=== PATIENT | male | born 1975 ===

== ENCOUNTER 2018-04-28 18:49 | Inpatient (IN) | payer MEDICAID, SELFPAY ==
[2018-04-28 18:49] VITALS: BMI 45.9
[2018-04-28 19:55] LABS: BASO # 0.1 K/uL (0.0-0.2); EOS # 0.4 K/uL (0.0-0.7); EOS % 6.1 % (0.0-4.0); HEMOGLOBIN 15.6 g/dL (12.0-18.0); LYMPH # 1.6 K/uL (1.0-4.3); LYMPH % 23.7 % (20.0-40.0); MEAN CELL VOLUME 95.8 fL (80.0-94.0); MEAN CORPUSCULAR HEMOGLOBIN 32.8 pg (27.0-31.0); MEAN CORPUSCULAR HGB CONC 34.2 g/dL (33.0-37.0); MEAN PLATELET VOLUME 9.2 fL (7.2-11.7); MONO # 0.5 K/uL (0.0-0.8); MONO % 7.7 % (0.0-10.0); NEUT # 4.2 K/uL (1.8-7.0); NEUT % 61.5 % (50.0-75.0); NRBC % 0.1 % (0.0-2.0); RBC 4.76 Mil/uL (4.40-5.90); RED CELL DISTRIBUTION WIDTH 13.2 % (11.5-14.5); WHITE BLOOD COUNT 6.8 K/uL (4.8-10.8)
[2018-04-28 20:03] LABS: INR 1.4; PROTHROMBIN TIME 15.6 SECONDS (9.7-12.2)
[2018-04-28 20:11] LABS: ALB/GLOB RATIO 1.3 (1.0-2.1); ALBUMIN 4.2 g/dL (3.5-5.0); ALT/SGPT 72 U/L (21-72); AST/SGOT 39 U/L (17-59); BLOOD UREA NITROGEN 19 mg/dL (9-20); CALCIUM 9.2 mg/dl (8.6-10.4); GFR NON-AFRICAN AMERICAN > 60
[2018-04-28] MEDS ORDERED: DiphenhydrAMINE 50 mg/ml Inj ONE (20:59)
--- NOTE | 2018-04-28 22:09 | C.PDOC ---
History Of Present Illness 42 yo male with no PMH came to the ER for for right sided anterior neck pain and swelling since 11 am. Pt states that he woke up asymptomatic, then started feeling swelling and pain to the right sided of his neck radiating to his ear /head. In the afternoon, the left side started hurting prompting ED visit. Notes pain with he rotates his head. Also states he is unable to lay down, causes pain to his neck and chest. Notes when he swallows it feels tight, "I feel it going down." Denies SOB, chest pain , trauma, fever, difficulty breathing or swallowing. Of note, pt had ventral hernia repair two days ago. <Merle Gonzalez - Last Filed: 04/29/18 01:09> <Celena Peterson - Last Filed: 04/28/18 22:14> History Per: Patient History/Exam Limitations: no limitations Onset/Duration Of Symptoms: Hrs Current Symptoms Are (Timing): Still Present Previous Symptoms: Neck Pain Associated Symptoms: denies: Incontinence, New Weakness, New Numbness Exacerbating Factor(s): Movement <Merle Gonzalez - Last Filed: 04/29/18 01:09> Time Seen by Provider: 04/28/18 19:12 Chief Complaint (Nursing): Back Pain Past Medical History Vital Signs: Last Vital Signs Temp 98.4 F 04/28/18 18:52 Pulse 63 04/28/18 21:09 Resp 12 04/28/18 21:09 BP 105/76 04/28/18 21:09 Pulse Ox 98 04/28/18 22:09 - [facility] Procedures ELBOW ARTHROPLASTY NEC (06/19/13) OTHER THERAPEUTIC APHERESIS (06/19/13) <Celena Peterson - Last Filed: 04/28/18 22:14> Vital Signs: Last Vital Signs Temp 98.4 F 04/28/18 18:52 Pulse 63 04/28/18 21:09 Resp 12 04/28/18 21:09 BP 105/76 04/28/18 21:09 Pulse Ox 98 04/28/18 21:09 - Medical History PMH: Gall Bladder Disease, Sleep Apnea (USES CPAP (?SETTING)) Denies: Chronic Kidney Disease Surgical History: Cholecystectomy - [facility] Procedures ELBOW ARTHROPLASTY NEC (06/19/13) OTHER THERAPEUTIC APHERESIS (06/19/13) Family History: States: Unknown Family Hx - Social History Hx Tobacco Use: No Hx Alcohol Use: No Hx Substance Use: No - Immunization History Hx Tetanus Toxoid Vaccination: No Hx Influenza Vaccination: No Hx Pneumococcal Vaccination: No <Merle Gonzalez - Last Filed: 04/29/18 01:09> Review Of Systems Except As Marked, All Systems Reviewed And Found Negative. Musculoskeletal: Positive for: Neck Pain <Merle Gonzalez - Last Filed: 04/29/18 01:09> Physical Exam - Physical Exam Appears: Well, Non-toxic, Other (uncomfortable) Skin: Normal Color, Warm, Dry Head: Atraumatic, Normacephalic Eye(s): bilateral: Normal Inspection, PERRL, EOMI Nose: Normal Oral Mucosa: Moist Throat: Normal Neck: No Normal ROM (decreased rom secondary to pain), Trachea Midline, No Step Off Deformity, Other ((+) tenderness and swelling to the anterior neck R> L) Chest: Symmetrical Cardiovascular: Rhythm Regular Respiratory: Normal Breath Sounds Gastrointestinal/Abdominal: Normal Exam, Soft, No Tenderness, Other ((+) healing incision, nontender, no erythema, no discharge) Back: Normal Inspection Extremity: Normal ROM Neurological/Psych: Oriented x3, Normal Speech, Normal Cognition <Merle Gonzalez - Last Filed: 04/29/18 01:09> ED Course And Treatment - Laboratory Results Result Diagrams: 04/28/18 19:52 04/28/18 19:52 <Celena Peetrson - Last Filed: 04/28/18 22:14> - Laboratory Results Result Diagrams: 04/28/18 19:52 04/28/18 19:52 O2 Sat by Pulse Oximetry: 98 - CT Scan/US CTA Chest Other Rad Studies (CT/US): Read By Radiologist, Radiology Report Reviewed CT/US Interpretation: History: Right side chest pain. Comparison: None. Technique: CT examination of the chest with intravenous contrast. CT examination of the chest was obtained following intravenous administration of 100 cc low osmolar contrast. Images were reconstructed in the coronal and sagittal planes. There is mild pleural-parenchymal density at both lung bases as well as small bilateral pleural effusions worse on the right side. Heart appears within normal limits in size. Small pericardial effusion may be present. There is no distinct hilar mediastinal mass, however, there is extensive infiltration of the fat at the mediastinal region as well as paratracheal region and the exact etiology is not certain. Considerations would include edema, inflammatory process or infiltrative disorder including neoplasm. The vascular structures appear intact. Note is made of a mild compression deformity of an upper lumbar vertebral body. Views of the upper abdomen show no obvious mass or lymphadenopathy. Gallbladder has been surgically removed. Impression: Mild pleural-parenchymal density both lung bases as well as small pleural effusions worse on the right side. No distinct mass at the hilar mediastinal regions although there is extensive infiltration of the fat at the mediastinal and paratracheal regions raising suspicion of inflammatory change or neoplasm. Small pericardial effusion suggested. Close clinical correlation is advised. CT Neck Soft Tissue Other Rad Studies (CT/US): Read By Radiologist, Radiology Report Reviewed CT/US Interpretation: History: Right-sided neck pain and swelling. Comparison: None. Technique: CT examination of the neck with intravenous contrast. CT examination of the neck was obtained following the intravenous administration of 100 cc low osmolar contrast. The trachea appears in the midline. The larynx and its contents appear within normal limits. The parotid and submandibular glands and thyroid gland appears symmetric. There is no distinct mass identified. There is extensive heterogeneous infiltration of the fat within the lower portion of the neck as well as the supraclavicular regions and the exact etiology of this finding is not certain. The osseous structures appear intact. Impression: Extensive infiltration of the fat at the supraclavicular regions and lower portion of the neck which raises suspicion of an inflammatory or neoplastic process. Close clinical correlation is advised. Following clinical evaluation correlation with nuclear medicine PET scan may be considered. Progress Note: Case discussed and pt evaluated by Dr Peterson upon initial evaluation. Agree dupon plan and treatment. In CT, pt developed rash to his face. Benadryl and Solumedrol given. No SOB, lip or tongue swelling. On re- evlauation, rash improved. No intraoral swelling. No SOB or stridor. Dr Peterson discussed case with Dr Gordon, agreed upon admission. <Merle Gonzalez - Last Filed: 04/29/18 01:09> Disposition Discussed With DrEldon: Yayo Evans Comment: acepted the pt on his service and took over the care at 10:14 PM Doctor Will See Patient In The: ED Counseled Patient/Family Regarding: Studies Performed, Diagnosis - Disposition Disposition Time: 22:14 - POA Present On Arrival: None <Celena Peterson - Last Filed: 04/28/18 22:14> <Merle Gonzalez - Last Filed: 04/29/18 01:09> - Disposition Disposition: HOSPITALIZED Condition: FAIR - Clinical Impression Clinical Impression: Neck pain on right side, Dysphagia, Dyspnea Decision To Admit - Pt Status Changed To: Hospital Disposition Of: Inpatient - Admit Certification Admit to Inpatient:: After my assessment, the patient will require hospita lization for at least two midnights. This is because of the severity of symptoms shown, intensity of services needed, and/or the medical risk in this patient being treated as an outpatient. - InPatient: Physician Admission Certification:: After my assessment, the patient will require hospitalization for at least two midnights. This is because of the severity of symptoms shown, intensity of services needed, and/or the medical risk in this patient being treated as an outpatient. - . Bed Request Type: Regular Admitting Physician: Yayo Evans <Celena Peterson - Last Filed: 04/28/18 22:14> <Merle Gonzalez - Last Filed: 04/29/18 01:09> - . Patient Diagnosis: Neck pain on right side, Dysphagia, Dyspnea
--- NOTE | 2018-04-28 22:09 | C.PDOC ---
Time Seen by Provider: 04/28/18 19:12 Chief Complaint (Nursing): Back Pain Past Medical History Vital Signs: Last Vital Signs Temp 98.4 F 04/28/18 18:52 Pulse 63 04/28/18 21:09 Resp 12 04/28/18 21:09 BP 105/76 04/28/18 21:09 Pulse Ox 98 04/28/18 21:09 - Medical History PMH: Gall Bladder Disease, Sleep Apnea (USES CPAP (?SETTING)) Denies: Chronic Kidney Disease Surgical History: Cholecystectomy - [facility] Procedures ELBOW ARTHROPLASTY NEC (06/19/13) OTHER THERAPEUTIC APHERESIS (06/19/13) - Social History Hx Tobacco Use: No Hx Alcohol Use: No Hx Substance Use: No - Immunization History Hx Tetanus Toxoid Vaccination: No Hx Influenza Vaccination: No Hx Pneumococcal Vaccination: No ED Course And Treatment - Laboratory Results Result Diagrams: 04/28/18 19:52 04/28/18 19:52 O2 Sat by Pulse Oximetry: 98 Disposition - Disposition
--- NOTE | 2018-04-28 22:47 | PCM.RRT ---
MACHINE INKER Nurses Assessment - Situation Date: 04/28/18 Time MACHINE INKER was called: 20:50 MACHINE INKER Location:: CT MACHINE INKER Reason for Call: Looks Sicker (Pt developed facial swelling and hives) - IV IV Inserted during MACHINE INKER?: No - Medication Medications Administered During MACHINE INKER: solu-cortef 100mg IV. benadryl 50mg IV CPR started during MACHINE INKER?: No - Jonathon Coma Scale Coma Scale Eye Opening: Spontaneous Coma Scale Motor: Obeys Commands Movement Coma Scale Verbal: Oriented Coma Scale Total: 15 - Recommendations Notifications: Attending Physician I.Reason for MACHINE INKER - A) Acute Change in Patient: Subjective: MACHINE INKER was called to CT at 20:50 s/p iv contrast administration for CT. Pt developed pruritic facial hives and swelling; limited only to chin and up. Pt reported he had never had a reaction like this before, either to contrast or to any meds or foods. Nursing reports he was also given Toradol in the ED. Pt was given solu-cortef 100mg and Benadryl 50mg, with rapid improvement of symptoms. Pt reported no swelling of tongue or difficulty breathing during course, no oral tingling. - Neurological Status (Select all that apply): Alert, Responsive, Oriented, Verbal, Follows Commands - Respiratory Oxygen Delivery Method: Room Air - Constitutional Appears: Non-toxic - Head Head Exam: ATRAUMATIC, NORMOCEPHALIC. absent: NORMAL INSPECTION (diffuse hives and swelling from chin up) - Eyes Eye Exam: EOMI - Respiratory Exam Respiratory Exam: Clear to Ausculation Bilateral, NORMAL BREATHING PATTERN. absent: Wheezes - Cardiovascular Exam Cardiovascular Exam: REGULAR RHYTHM. absent: Tachycardia, Murmur - GI/Abdominal Exam GI & Abdominal Exam: Soft, Normal Bowel Sounds. absent: Distended - Neurological Exam Neurological Exam: Alert, Awake, Oriented x3 - Extremities Exam Extremities Exam: Normal Inspection. absent: Calf Tenderness, Pedal Edema Plan - Assessment of Findings&Treatment Plan Acute allergic reaction -given solu-cortef 100mg and benadryl 50mg -good response following administraton of medication -vitals WNL BP 115/85, HR 965, O2 100% on room air -advised pt of possible adverse reactions to either iv contrast or torodal -stable
--- NOTE | 2018-04-28 23:00 | CP.PCM.HP ---
<Margaret Machado - Last Filed: 04/29/18 06:05> History of Present Illness - History of Present Illness History of Present Illness: Patient is a 42 year old male w/ no PMHx who presented to the ED w/ complaints of right sided neck, shoulder, and post auricular pain, left sided chest pressure, and dysphagia since 11am. Pt reports the neck pain is worse with movement and painful to touch, right arm weakness and tingling. Pt reports dysphagia to liquids. Pt reports left chest pressure, worse when laying flat. Pt reports all symptoms are of new onset. Upon questioning, pt admits to right sided throbbing cervical/post auricular new onset headache. Pt denies chest pain, SOB, abdominal pain, nausea, vomiting or diarrhea. Of note; MANAGER [employer]IA called to CT earlier in evening as pt had new onset facial allergic reaction, non anaphylactic to presumed iv contrast or toradol given by ED. Full resolution w/ Benadryl 50mg and solu-cortef 100mg PMD: Dr. Graham PMHx: denies PSHx: lap umbilical hernia repair 04/17, emil-12 yrs ago Allergies: possible iodine, toradol Meds:pain meds s/p sx FamHx: denies SocHx:Denies alcohol/tobacco/drugs. Lives w/ and children. Works construction Present on Admission - Present on Admission Any Indicators Present on Admission: No Review of Systems - EENT Eyes: absent: Change in Vision Nose/Mouth/Throat: Dysphagia (to liquids), Neck Pain (right sided). absent: Throat Swelling, Tongue Swelling - Cardiovascular Cardiovascular: Chest Pain (pressure ). absent: Edema - Respiratory Respiratory: Pain on Inspiration. absent: Cough, Dyspnea - Gastrointestinal Gastrointestinal: absent: Abdominal Pain, Diarrhea, Nausea - Genitourinary Genitourinary: absent: Dysuria - Musculoskeletal Musculoskeletal: Muscle Weakness (right arm), Neck Pain (right), Numbness, Tingling (right arm) - Neurological Neurological: absent: Dizziness Past Patient History - Past Medical History & Family History Past Medical History?: Yes - Past Social History Smoking Status: Never Smoked - CARDIAC Hx Cardiac Disorders: No - PULMONARY Hx Sleep Apnea: Yes (USES CPAP (?SETTING)) - NEUROLOGICAL Hx Neurological Disorder: No - HEENT Hx HEENT Problems: No - RENAL Hx Chronic Kidney Disease: No - ENDOCRINE/METABOLIC Hx Endocrine Disorders: No - HEMATOLOGICAL/ONCOLOGICAL Hx Blood Disorders: No - INTEGUMENTARY Hx Dermatological Problems: No - MUSCULOSKELETAL/RHEUMATOLOGICAL Hx Falls: No - GASTROINTESTINAL Hx Gall Bladder Disease: Yes - GENITOURINARY/GYNECOLOGICAL Hx Genitourinary Disorders: No - PSYCHIATRIC Hx Substance Use: No - SURGICAL HISTORY Hx Cholecystectomy: Yes - ANESTHESIA Hx Anesthesia: Yes Hx Anesthesia Reactions: No Hx Malignant Hyperthermia: No Meds Allergies/Adverse Reactions: Allergies Allergy/AdvReac Type Severity Reaction Status Date / Time iodine Allergy RASH Verified 04/28/18 22:55 Physical Exam - Constitutional Appears: No Acute Distress - Head Exam Head Exam: ATRAUMATIC, NORMAL INSPECTION, NORMOCEPHALIC - Eye Exam Eye Exam: EOMI, Normal appearance - ENT Exam ENT Exam: Mucous Membranes Moist, Normal Exam - Neck Exam Neck exam: Positive for: Normal Inspection, Tenderness (right sided neck ttp) - Respiratory Exam Respiratory Exam: Clear to Auscultation Bilateral, NORMAL BREATHING PATTERN. absent: Rales, Wheezes - Cardiovascular Exam Cardiovascular Exam: REGULAR RHYTHM, +S1, +S2, Systolic Murmur. absent: Tachycardia - GI/Abdominal Exam GI & Abdominal Exam: Normal Bowel Sounds, Soft. absent: Tenderness - Extremities Exam Extremities exam: Positive for: normal inspection. Negative for: calf tenderness, pedal edema - Neurological Exam Neurological exam: Alert, Motor Sensory Deficit, Oriented x3 - Psychiatric Exam Psychiatric exam: Normal Affect, Normal Mood - Skin Skin Exam: Dry, Intact, Normal Color, Warm Results - Vital Signs Recent Vital Signs: Last Vital Signs Temp 98.6 F 04/28/18 22:33 Pulse 66 04/28/18 22:33 Resp 16 04/28/18 22:39 BP 115/76 04/28/18 22:33 Pulse Ox 96 04/28/18 22:39 - Labs Result Diagrams: 04/28/18 19:52 04/28/18 19:52 Labs: Laboratory Results - last 24 hr 04/28/18 04/28/18 04/28/18 19:52 19:52 19:52 WBC 6.8 RBC 4.76 Hgb 15.6 Hct 45.6 MCV 95.8 H MCH 32.8 H MCHC 34.2 RDW 13.2 Plt Count 233 MPV 9.2 Neut % (Auto) 61.5 Lymph % (Auto) 23.7 [place] % (Auto) 7.7 Eos % (Auto) 6.1 H Baso % (Auto) 1.0 Neut # (Auto) 4.2 Lymph # (Auto) 1.6 [place] # (Auto) 0.5 Eos # (Auto) 0.4 Baso # (Auto) 0.1 PT 15.6 H INR 1.4 APTT 32 Sodium 140 Potassium 4.3 Chloride 101 Carbon Dioxide 27 Anion Gap 17 BUN 19 Creatinine 0.8 Est GFR ( Amer) > 60 Est GFR (Non-Af Amer) > 60 Random Glucose 109 Calcium 9.2 Total Bilirubin 0.5 AST 39 ALT 72 D Alkaline Phosphatase 85 Total Protein 7.5 Albumin 4.2 Globulin 3.3 Albumin/Globulin Ratio 1.3 Assessment & Plan - Assessment and Plan (Free Text) Assessment: 42 yo m admitted w/ neck/chest pain; CT findings concerning for neoplasm Neck/Chest pain -CT concerning for neoplastic lesions -Order MRI to further evaluate -Motrin 400mg q6 prn pain Chest Pressure -f/u CLAY, trop x1 negative -EKG unchanged from 04/05/18, abnormal Dysphagia -NPO except meds -swallow eval/treat -speech eval Ppx -NPO -D5.5NS @100/hr <Yayo Evans - Last Filed: 04/29/18 06:10> Results - Vital Signs Recent Vital Signs: Last Vital Signs Temp 98.1 F 04/29/18 00:00 Pulse 61 04/29/18 00:00 Resp 20 04/29/18 00:00 BP 119/75 04/29/18 00:00 Pulse Ox 98 04/29/18 03:14 - Labs Result Diagrams: 04/28/18 19:52 04/28/18 19:52 Labs: Laboratory Results - last 24 hr 04/28/18 04/28/18 04/28/18 19:52 19:52 19:52 WBC 6.8 RBC 4.76 Hgb 15.6 Hct 45.6 MCV 95.8 H MCH 32.8 H MCHC 34.2 RDW 13.2 Plt Count 233 MPV 9.2 Neut % (Auto) 61.5 Lymph % (Auto) 23.7 [place] % (Auto) 7.7 Eos % (Auto) 6.1 H Baso % (Auto) 1.0 Neut # (Auto) 4.2 Lymph # (Auto) 1.6 [place] # (Auto) 0.5 Eos # (Auto) 0.4 Baso # (Auto) 0.1 PT 15.6 H INR 1.4 APTT 32 Sodium 140 Potassium 4.3 Chloride 101 Carbon Dioxide 27 Anion Gap 17 BUN 19 Creatinine 0.8 Est GFR ( Amer) > 60 Est GFR (Non-Af Amer) > 60 Random Glucose 109 Calcium 9.2 Total Bilirubin 0.5 AST 39 ALT 72 D Alkaline Phosphatase 85 Total Creatine Kinase Troponin I Total Protein 7.5 Albumin 4.2 Globulin 3.3 Albumin/Globulin Ratio 1.3 04/29/18 05:38 WBC RBC Hgb Hct MCV MCH MCHC RDW Plt Count MPV Neut % (Auto) Lymph % (Auto) [place] % (Auto) Eos % (Auto) Baso % (Auto) Neut # (Auto) Lymph # (Auto) [place] # (Auto) Eos # (Auto) Baso # (Auto) PT INR APTT Sodium Potassium Chloride Carbon Dioxide Anion Gap BUN Creatinine Est GFR ( Amer) Est GFR (Non-Af Amer) Random Glucose Calcium Total Bilirubin AST ALT Alkaline Phosphatase Total Creatine Kinase 23 L Troponin I < 0.0120 Total Protein Albumin Globulin Albumin/Globulin Ratio Assessment & Plan - Date & Time Date: 04/29/18 (I have seen and examined the patient. I agree with the findings and plan of care as documented by Dr. Serrano. Patient with neck and chest pain. Dysphagia. CT done in ED showing possible neoplastic lesion. MRI to be done. IVF. Monitor for acute changes.) Time: 06:09 Attending/Attestation - Attestation I have personally seen and examined this patient.: Yes I have fully participated in the care of the patient.: Yes I have reviewed all pertinent clinical information: Yes
[2018-04-28] MEDS ORDERED: Iodixanol 320 MG/ML 100 ML BOTTLE IV ONE (23:04)
[2018-04-29 01:06] VITALS: RESP 20
[2018-04-29] MEDS: Dextrose 5%/0.9% NS 1,000 ML IV SCH ×2 (05:17→14:03)
[2018-04-29 06:10] LABS: CK-MB 0.27 ng/mL (0.0-3.38)
--- NOTE | 2018-04-29 10:43 | CT ---
Date of service: 04/28/2018 PROCEDURE: CT Chest with contrast HISTORY: pain, swelling COMPARISON: None available. TECHNIQUE: Contiguous axial images were obtained through the chest with intravenous contrast enhancement. Sagittal and coronal reconstructions were performed. IV contrast: Radiation dose (DLP): 913.14 mGy-cm. This CT exam was performed using one or more of the following dose reduction techniques: Automated exposure control, adjustment of the mA and/or kV according to patient size, and/or use of iterative reconstruction technique. FINDINGS: LUNGS: Tiny bilateral effusions with mild bibasilar atelectasis. Minor linear scarring changes seen in the left lingular region. No parenchymal masses MEDIASTINUM: There are extensive infiltration changes seen within the mediastinal fat extending superiorly into the supraclavicular subcutaneous tissues and subcutaneous tissues of the lower neck bilaterally. There is also infiltration changes within the anterior subcutaneous tissues of the mid upper chest mid and bilateral parasagittal upper chest. Findings are of uncertain etiology though suggest a diffuse inflammatory process ( cellulitis - mediastinitis). Edema or other of the infiltrative process such as atypical neoplastic process).. No distinct mediastinal or hilar mass no significant mediastinal or hilar adenopathy. Heart size is mildly enlarged. Small pericardial effusion. Small hiatal hernia. Central airways midline and patent. No central endoluminal lesions. PLEURA: As above. No pneumothorax. BONES: Mild multilevel degenerative spondylosis of the thoracic spine. There are no acute compression fractures nor the retropulsed fragments however chronic appearing wedge deformity of the L1 segment is present UPPER ABDOMEN: Cholecystectomy. OTHER FINDINGS: None. IMPRESSION: Extensive infiltration changes seen within the mediastinal fat extending superiorly into the supraclavicular subcutaneous tissues and subcutaneous tissues of the lower neck bilaterally. There is also infiltration changes within the anterior subcutaneous tissues of the mid upper chest mid and bilateral parasagittal upper chest. Findings are of uncertain etiology though suggest a diffuse inflammatory process ( cellulitis - mediastinitis). Edema or other of the infiltrative process such as atypical neoplastic process) not excluded distinct mediastinal or hilar mass no significant mediastinal or hilar adenopathy. Tiny bilateral effusions and atelectasis both posterior sulci. There also some curvilinear atelectatic and or scarring changes in the lingular region. Cardiomegaly with small pericardial effusion
--- NOTE | 2018-04-29 10:57 | CT ---
Date of service: 04/28/2018. PROCEDURE: CT NECK WITH CONTRAST. HISTORY: Pain swelling COMPARISON: Correlation made with concurrent CT scan chest TECHNIQUE: Contiguous helical/transaxial sections of the neck with intravenous contrast. Coronal and sagittal reformats generated. Intravenous contrast dose: 100 cc Visipaque [id number] Radiation dose: DLP 573.61 mGy-cm This CT exam was performed using one or more of the following dose reduction techniques: Automated exposure control, adjustment of the mA and/or kV according to patient size, and/or use of iterative reconstruction technique.. FINDINGS: Extensive infiltration changes seen within the mediastinal fat extending superiorly into the supraclavicular subcutaneous tissues and subcutaneous tissues of the lower neck bilaterally. There is also infiltration changes within the anterior subcutaneous tissues of the mid upper chest mid and bilateral parasagittal upper chest more so on the right side.. Findings are of uncertain etiology though suggest a diffuse inflammatory process ( cellulitis - mediastinitis). Edema or other of the infiltrative process such as atypical neoplastic process).. No distinct upper mediastinal mass. No obvious distinct mass seen in the soft tissues of the neck. Multiple small nonspecific bilateral cervical lymph nodes are present. Thyroid gland is diminutive and poorly delineated due to crossing streak and beam hardening artifact arising from dense clavicles and shoulder girdles as well as large body habitus. Submandibular and parotid glands grossly unremarkable. Carotid and vertebral arteries are patent throughout. Mild palatine tonsillar enlargement with encroachment of the tonsils medially reducing the paige pharyngeal airway. At least 1 tiny sialolith is seen in the left palatine tonsil. Minor asymmetry of the vallecular likely due to some encroachment by lingual tonsils of. Residual and/or retained secretion may contribute. There is also asymmetry of the pyriform sinuses left-sided which is smaller than the right however no definitive masses identified The airway is diminished at the level of the true vocal cords possibly due to Valsalva or phonation during image acquisition.. There straightening of the normal cervical lordosis likely due to patient positioning in the gantry. IMPRESSION: Extensive infiltration changes seen within the mediastinal fat extending superiorly into the supraclavicular subcutaneous tissues and subcutaneous tissues of the lower neck bilaterally. There is also infiltration changes within the anterior subcutaneous tissues of the mid upper chest mid and bilateral parasagittal upper chest more so on the right side.. Findings are of uncertain etiology though suggest a diffuse inflammatory process ( cellulitis - mediastinitis). Edema or other of the infiltrative process such as atypical neoplastic process).. No distinct upper mediastinal mass. No obvious distinct mass seen in the soft tissues of the neck. Multiple small nonspecific bilateral cervical lymph nodes are present.
--- NOTE | 2018-04-29 12:51 | CT ---
Date of service: 04/29/2018 PROCEDURE: CT HEAD WITHOUT CONTRAST. HISTORY: headache, R-sided neck pain COMPARISON: None available. TECHNIQUE: Axial computed tomography images were obtained through the head/brain without intravenous contrast. Radiation dose: Total exam DLP = 1096.89 mGy-cm. This CT exam was performed using one or more of the following dose reduction techniques: Automated exposure control, adjustment of the mA and/or kV according to patient size, and/or use of iterative reconstruction technique. FINDINGS: HEMORRHAGE: No intracranial hemorrhage. BRAIN: No mass effect or edema. No atrophy or chronic microvascular ischemic changes. VENTRICLES: Unremarkable. No hydrocephalus. CALVARIUM: Unremarkable. PARANASAL SINUSES: Unremarkable as visualized. No significant inflammatory changes. MASTOID AIR CELLS: Unremarkable as visualized. No inflammatory changes. OTHER FINDINGS: None. IMPRESSION: No acute intracranial hemorrhage.
--- NOTE | 2018-04-29 20:10 | CP.PCM.PN ---
Subjective - Date & Time of Evaluation Date of Evaluation: 04/29/18 Time of Evaluation: 09:15 - Subjective Subjective: Medicine Progress Note for Hospitalist Service Pt seen and examined at bedside this am. States he is still having neck pain 03/09, not improving with medication given in ED. Reports hives on face have resolved s/p [employer]. Reports pain with inspiration 2/2 to the R-sided neck pain he is having. denies vision changes, chest pain, n/v/d/c, abd pain, urinary complaints, or other symptoms. Objective - Vital Signs/Intake and Output Vital Signs (last 24 hours): Temp Pulse Resp BP Pulse Ox 98.4 F 57 L 20 109/73 98 04/29/18 15:05 04/29/18 15:05 04/29/18 15:05 04/29/18 15:05 04/29/18 15:05 Intake and Output: 04/29/18 04/30/18 18:59 06:59 Intake Total 800 Balance 800 - Medications Medications: Current Medications Heparin Sodium (Porcine) (Heparin) 5,000 units SC Q8 [facility] Last Admin: 04/29/18 13:21 Dose: 5,000 units Dextrose/Sodium Chloride (Dextrose 5%/0.9% Ns 1000 Ml) 1,000 mls @ 100 mls/hr IV .Q10H [facility] Last Admin: 04/29/18 14:03 Dose: Not Given Influenza Virus Vaccine (Fluzone Quad [id number]) 60 mcg IM .ONCE ONE Stop: 05/01/18 10:16 Morphine Sulfate (Morphine) 1 mg IVP Q6H PRN PRN Reason: Pain, moderate (4-7) Last Admin: 04/29/18 10:04 Dose: 1 mg Pneumococcal Polyvalent Vaccine (Pneumovax 23 Vaccine) 0.5 ml IM .ONCE ONE Stop: 05/01/18 10:01 - Labs Labs: 04/28/18 19:52 04/28/18 19:52 PT 15.6 SECONDS (9.7-12.2) H 04/28/18 19:52 INR 1.4 04/28/18 19:52 APTT 32 SECONDS (21-34) 04/28/18 19:52 - Constitutional Appears: Non-toxic, No Acute Distress - Head Exam Head Exam: ATRAUMATIC, NORMOCEPHALIC - Eye Exam Eye Exam: EOMI, Normal appearance, PERRL - ENT Exam ENT Exam: Mucous Membranes Moist - Neck Exam Additional comments: Tenderness to palpation of R trapezius and lateral neck up to post-auricular area and R occipital area w/ radiation down to R mid-sternal area, warm and boggy soft tissue - Respiratory Exam Respiratory Exam: Clear to Ausculation Bilateral, NORMAL BREATHING PATTERN. absent: Rales, Rhonchi, Wheezes - Cardiovascular Exam Cardiovascular Exam: REGULAR RHYTHM, +S1, +S2. absent: Gallop, Rubs, Murmur - GI/Abdominal Exam GI & Abdominal Exam: Soft, Normal Bowel Sounds. absent: Distended, Firm, Guarding, Rigid, Tenderness - Neurological Exam Neurological Exam: Alert, Awake, CN II-XII Intact, Normal Gait, Oriented x3 - Psychiatric Exam Psychiatric exam: Normal Affect, Normal Mood - Skin Skin Exam: Dry, Intact, Warm Assessment and Plan - Assessment and Plan (Free Text) Assessment: 42M PMHx impaired glucose tolerance, obesity, who presented with c/o R sided headache, post-auricular, and neck pain, L sided chest pressure, and dysphagia. Found to have soft tissue swelling in neck and possible mediastinitis on CT scans. R/o inflammatory vs. neoplastic etiology. Plan: Neck/Chest pain, r/o inflammatory vs. neoplastic etiology -Neck and Chest CT demonstrated extensive infiltration changes seen within the mediastinal fat extending superiorly into supraclavicular subcutaneous tissues and subcutaneous tissues of the lower neck b/l; infiltration changes within anterior subcutaneous tissues of mid upper chest and b/l parasagittal upper chest more so on the R side; findings uncertain etiology, cannot exclude cellulitis, mediastinitis, atypical neoplastic process -CT head: neg for acute changes -ESR and CRP elevated -Heme/onc (Dr. Garcia) consulted, recs appreciated -Pulm (Dr. White consulted, recs appreciated -Pending echo -F/u lab work-up for inflammatory markers -Trop x1 neg -EKG unchanged from 04/05/18 per chart review -Morphine 1 mg q 6 h prn pain (Unsure if pt has reaction to toradol vs. IV contrast after [employer] yesterday for allergic reaction/hives on face) Dysphagia -NPO except meds -swallow eval/treat -speech eval PPX -NPO, pending speech and swallow eval -D5 1/2 NS @100 cc/hr -DVT ppx: Heparin 5000U q 8h Pt seen, examined with, and plan discussed with Dr. Chowdhury, attending. Calvin Gomes DO PGY-1, [employer] House [employer] Pager #[phone]
[2018-04-30] MEDS: Dextrose 5%/0.9% NS 1,000 ML IV SCH ×3 (01:50→21:26)
[2018-04-30 07:23] LABS: BASO # 0.1 K/uL (0.0-0.2); BASO % 0.9 % (0.0-2.0); EOS # 0.4 K/uL (0.0-0.7); EOS % 7.1 % (0.0-4.0); HEMOGLOBIN 14.1 g/dL (12.0-18.0); LYMPH # 1.3 K/uL (1.0-4.3); MEAN CELL VOLUME 96.2 fL (80.0-94.0); MEAN CORPUSCULAR HEMOGLOBIN 32.7 pg (27.0-31.0); MEAN PLATELET VOLUME 9.8 fL (7.2-11.7); MONO # 0.5 K/uL (0.0-0.8); MONO % 8.2 % (0.0-10.0); NEUT % 63.8 % (50.0-75.0); NRBC % 0.1 % (0.0-2.0); RBC 4.3 Mil/uL (4.40-5.90); RED CELL DISTRIBUTION WIDTH 13.1 % (11.5-14.5); WHITE BLOOD COUNT 6.3 K/uL (4.8-10.8)
[2018-04-30 07:36] LABS: ALB/GLOB RATIO 1.1 (1.0-2.1); ALBUMIN 3.3 g/dL (3.5-5.0); ALT/SGPT 87 U/L (21-72); AST/SGOT 45 U/L (17-59); BLOOD UREA NITROGEN 19 mg/dL (9-20); CALCIUM 8.3 mg/dl (8.6-10.4); GFR NON-AFRICAN AMERICAN > 60
--- NOTE | 2018-04-30 13:55 | CP.PCM.PN ---
Subjective - Date & Time of Evaluation Date of Evaluation: 04/30/18 Time of Evaluation: 08:30 - Subjective Subjective: PGY-[address] Chowdhury service Patient is seen and examined at bedside. Patient reports improvement in pain felt in the back of his right ear and neck. Patient says his chest feels like as if it is swelling up at times, with pain and pressure. Patient reports swelling in his neck bilaterally. Pain and pressure gets worse when coughing or when having hiccups. Patient denies fever, chills, headache, dizziness, chest pain, shortness of breath, nausea, vomiting, diarrhea, constipation or rash. Objective - Vital Signs/Intake and Output Vital Signs (last 24 hours): Temp Pulse Resp BP Pulse Ox 98.5 F 60 20 118/72 97 04/30/18 07:28 04/30/18 07:28 04/30/18 07:28 04/30/18 07:28 04/30/18 07:28 Intake and Output: 04/30/18 04/30/18 06:59 18:59 Intake Total 1600 Balance 1600 - Medications Medications: Current Medications Heparin Sodium (Porcine) (Heparin) 5,000 units SC Q8 [facility] Last Admin: 04/30/18 05:20 Dose: 5,000 units Dextrose/Sodium Chloride (Dextrose 5%/0.9% Ns 1000 Ml) 1,000 mls @ 100 mls/hr IV .Q10H [facility] Last Admin: 04/30/18 11:46 Dose: 100 mls/hr Influenza Virus Vaccine (Fluzone Quad [id number]) 60 mcg IM .ONCE ONE Stop: 05/01/18 10:16 Morphine Sulfate (Morphine) 1 mg IVP Q6H PRN PRN Reason: Pain, moderate (4-7) Last Admin: 04/29/18 10:04 Dose: 1 mg Pneumococcal Polyvalent Vaccine (Pneumovax 23 Vaccine) 0.5 ml IM .ONCE ONE Stop: 05/01/18 10:01 - Labs Labs: 04/30/18 06:45 04/30/18 06:45 PT 15.6 SECONDS (9.7-12.2) H 04/28/18 19:52 INR 1.4 04/28/18 19:52 APTT 32 SECONDS (21-34) 04/28/18 19:52 - Constitutional Appears: Well, Non-toxic, No Acute Distress - Head Exam Head Exam: ATRAUMATIC, NORMAL INSPECTION, NORMOCEPHALIC - Eye Exam Eye Exam: EOMI, Normal appearance - ENT Exam ENT Exam: Mucous Membranes Moist, Normal Exam, Normal External Ear Exam, Normal Oropharynx Additional comments: no tonsilar abscesses or exudates observed - Neck Exam Neck Exam: Tenderness Additional comments: right swelling palpated in anterior area of the neck, tender to palpation on both right and left anterior area of neck, non erythematous - Respiratory Exam Respiratory Exam: Clear to Ausculation Bilateral, NORMAL BREATHING PATTERN. absent: Accessory Muscle Use, Rales, Rhonchi, Wheezes, Respiratory Distress - Cardiovascular Exam Cardiovascular Exam: REGULAR RHYTHM, +S1, +S2 Additional comments: chest tenderness to palpation costochondral junction and left sided anterior chest wall. - GI/Abdominal Exam GI & Abdominal Exam: Soft, Normal Bowel Sounds. absent: Tenderness - Extremities Exam Extremities Exam: Full ROM, Normal Inspection. absent: Tenderness - Back Exam Back Exam: Full ROM, NORMAL INSPECTION - Neurological Exam Neurological Exam: Alert, Awake, Oriented x3 - Psychiatric Exam Psychiatric exam: Normal Affect, Normal Mood - Skin Skin Exam: Dry, Intact, Normal Color, Warm Assessment and Plan - Assessment and Plan (Free Text) Plan: Neck/Chest pain, r/o inflammatory vs. neoplastic etiology -Neck and Chest CT demonstrated extensive infiltration changes seen within the mediastinal fat extending superiorly into supraclavicular subcutaneous tissues and subcutaneous tissues of the lower neck b/l; infiltration changes within anterior subcutaneous tissues of mid upper chest and b/l parasagittal upper ches t more so on the R side; findings uncertain etiology, cannot exclude cellulitis, mediastinitis, atypical neoplastic process -CT head: neg for acute changes -ESR and CRP elevated - U/A - F/U results -Blood cultures -- F/U results -Urine cultures --F/U results -Throat culture and rapid strep test -- F/U results -echo -- f/u official report -F/u lab work-up for inflammatory markers -Heme/onc (Dr. Garcia) consulted, recs appreciated -CT surgery Dr Hernandez consulted - probable early descending mediastinits, ENT, ID consult, abx as indicated -ID consult Dr Clements - recs appreciated - ENT Dr Purcell, consulted, recs appreciated - Critical care Dr Martinez, consulted, recs appreciated -Trop x1 neg -EKG unchanged from 04/05/18 per chart review -Morphine 1 mg q 6 h prn pain (Unsure if pt has reaction to toradol vs. IV contrast after [employer] yesterday for allergic reaction/hives on face) - Meds: - Vanco 1gm IVPB stat one dose - Clindamycin 600mg IVPB Q8 Dysphagia -NPO except meds -swallow eval/treat - recommended regular diet with thin liquids. PPX -Keep NPO -D5 1/2 NS @100 cc/hr -DVT ppx: Heparin 5000U q 8h [place] discussed with Dr Trenton Watson, PGY-1
--- NOTE | 2018-04-30 13:59 | CP.PCM.CON ---
History of Present Illness - History of Present Illness History of Present Illness: Cardiothoracic consult note for Dr. Romero consulted for: mediastinitis vs mediastinal mass Patient is a 42M with past history significant for sleep apnea, for which he uses a CPAP machine, and laparoscopic umbilical hernia repair 2 weeks ago who presented to the ED yesterday AM with a severe headache that eventually radiated to his right neck and then into his chest. Symptoms started 48 hours ago. Patient reports pain in his neck and chest are worse with deep respirations and moving his arm. Denies any SOB, palpitations, fevers, chills, left sided shoulder, neck or jaw pain, dysphagia, weakness, numbness or tingling, visions changes, nausea, vomiting, diarrhea, constipation or any other symptoms. Patient denies any recent trauma, dental procedures, illness, or sick contacts or travel outside of the country. Patient denies any complications after his surgery and is currently on no medications. Patient states he cleans his CPAP machine with water and vinegar every week. He denies any prior occurrences or any family medical history PMH: sleep apnea PSH: cholecystectomy, right elbow tendon repair, laparoscopic umbilical hernia with mesh 04/17/18 ALL: iodine dye vs toradol (rash) Social: denies any tobacco, ETOH, or drug use Review of Systems - Review of Systems All systems: reviewed and no additional remarkable complaints except (as per HPI) Past Patient History - Past Medical History & Family History Past Medical History?: Yes - Past Social History Smoking Status: Never Smoked Alcohol: None Drugs: Denies - CARDIAC Hx Cardiac Disorders: No - PULMONARY Hx Sleep Apnea: Yes (USES CPAP (?SETTING)) - NEUROLOGICAL Hx Neurological Disorder: No - HEENT Hx HEENT Problems: No - RENAL Hx Chronic Kidney Disease: No - ENDOCRINE/METABOLIC Hx Endocrine Disorders: No - HEMATOLOGICAL/ONCOLOGICAL Hx Blood Disorders: No - INTEGUMENTARY Hx Dermatological Problems: No - MUSCULOSKELETAL/RHEUMATOLOGICAL Hx Falls: No - GASTROINTESTINAL Hx Gall Bladder Disease: Yes - GENITOURINARY/GYNECOLOGICAL Hx Genitourinary Disorders: No - PSYCHIATRIC Hx Substance Use: No - SURGICAL HISTORY Hx Cholecystectomy: Yes - ANESTHESIA Hx Anesthesia: Yes Hx Anesthesia Reactions: No Hx Malignant Hyperthermia: No Meds Allergies/Adverse Reactions: Allergies Allergy/AdvReac Type Severity Reaction Status Date / Time iodine Allergy RASH Verified 04/28/18 22:55 - Medications Medications: Current Medications Heparin Sodium (Porcine) (Heparin) 5,000 units SC Q8 [facility] Last Admin: 04/30/18 05:20 Dose: 5,000 units Dextrose/Sodium Chloride (Dextrose 5%/0.9% Ns 1000 Ml) 1,000 mls @ 100 mls/hr IV .Q10H [facility] Last Admin: 04/30/18 11:46 Dose: 100 mls/hr Influenza Virus Vaccine (Fluzone Quad [id number]) 60 mcg IM .ONCE ONE Stop: 05/01/18 10:16 Morphine Sulfate (Morphine) 1 mg IVP Q6H PRN PRN Reason: Pain, moderate (4-7) Last Admin: 04/29/18 10:04 Dose: 1 mg Pneumococcal Polyvalent Vaccine (Pneumovax 23 Vaccine) 0.5 ml IM .ONCE ONE Stop: 05/01/18 10:01 Physical Exam - Constitutional Appears: Well, Non-toxic, No Acute Distress - Head Exam Head Exam: ATRAUMATIC, NORMOCEPHALIC - Eye Exam Eye Exam: EOMI, Normal appearance, PERRL. absent: Conjunctival injection, Scleral icterus Pupil Exam: NORMAL ACCOMODATION, PERRL - ENT Exam ENT Exam: Mucous Membranes Moist, Normal Oropharynx - Neck Exam Additional comments: right neck appears swollen compared to left from mandibular angle to the clavicles, boggy to palpation with no crepitus, no palpable lymphadenopathy, no masses Diffusely tender to palpation, worse supraclavicular - Respiratory Exam Respiratory Exam: NORMAL BREATHING PATTERN. absent: Accessory Muscle Use, Respiratory Distress - Cardiovascular Exam Cardiovascular Exam: RRR Additional comments: anterior chest tenderness to palpation along the costo-sternal margin - GI/Abdominal Exam GI & Abdominal Exam: Soft. absent: Distended, Tenderness Additional comments: surgical umbilical incision and lateral incisions well approximated with dermabond, no erythema or drainage or bleeding - Extremities Exam Extremities exam: Positive for: pedal pulses present. Negative for: calf tenderness, pedal edema - Neurological Exam Neurological exam: Alert, CN II-XII Intact, Oriented x3 Additional comments: gross motor strength and sensation intact in all 4 extremities - Psychiatric Exam Psychiatric exam: Normal Affect, Normal Mood - Skin Skin Exam: Dry, Intact, Normal Color, Warm Results - Vital Signs Recent Vital Signs: Last Vital Signs Temp 98.5 F 04/30/18 07:28 Pulse 60 04/30/18 07:28 Resp 20 04/30/18 07:28 BP 118/72 04/30/18 07:28 Pulse Ox 97 04/30/18 07:28 - Labs Result Diagrams: 04/30/18 06:45 04/30/18 06:45 Labs: Laboratory Results - last 24 hr 04/29/18 04/29/18 04/30/18 13:19 13:19 06:45 WBC 6.3 RBC 4.30 L Hgb 14.1 Hct 41.4 MCV 96.2 H MCH 32.7 H MCHC 34.0 RDW 13.1 Plt Count 202 MPV 9.8 Neut % (Auto) 63.8 Lymph % (Auto) 20.0 [place] % (Auto) 8.2 Eos % (Auto) 7.1 H Baso % (Auto) 0.9 Neut # (Auto) 4.0 Lymph # (Auto) 1.3 [place] # (Auto) 0.5 Eos # (Auto) 0.4 Baso # (Auto) 0.1 ESR 19 H Sodium Potassium Chloride Carbon Dioxide Anion Gap BUN Creatinine Est GFR ( Amer) Est GFR (Non-Af Amer) Random Glucose Calcium Phosphorus Magnesium Total Bilirubin AST ALT Alkaline Phosphatase Lactate Dehydrogenase C-Reactive Protein 12.20 H Total Protein Albumin Globulin Albumin/Globulin Ratio 04/30/18 06:45 WBC RBC Hgb Hct MCV MCH MCHC RDW Plt Count MPV Neut % (Auto) Lymph % (Auto) [place] % (Auto) Eos % (Auto) Baso % (Auto) Neut # (Auto) Lymph # (Auto) [place] # (Auto) Eos # (Auto) Baso # (Auto) ESR Sodium 142 Potassium 3.7 Chloride 107 Carbon Dioxide 26 Anion Gap 13 BUN 19 Creatinine 0.7 L Est GFR ( Amer) > 60 Est GFR (Non-Af Amer) > 60 Random Glucose 104 Calcium 8.3 L Phosphorus 4.3 Magnesium 2.0 Total Bilirubin 0.5 AST 45 ALT 87 H D Alkaline Phosphatase 96 Lactate Dehydrogenase 311 L C-Reactive Protein Total Protein 6.3 Albumin 3.3 L D Globulin 3.0 Albumin/Globulin Ratio 1.1 - Imaging and Cardiology CT scan - chest Status: Image reviewed by me, Report reviewed by me neck CT Status: Image reviewed by me, Report reviewed by me Assessment & Plan - Assessment and Plan (Free Text) Assessment: 42M with mediastinitis of unknown origin, less likely mediastinal mass Plan: Recommend ENT consult--there is no apparent cause for mediastinal infection, and tonsilar enlargement on the CT neck, so must evaluate for possible cause of infection from ENT cause that extending inferiorly Recommend ID consult for antibiotic recommendations and possible blood cultures PRN pain medication Monitor closely for any signs of airway compromise Further CT surgery recs pending work up and Dr. Romero's evaluation Discussed with Dr. Romero, who agrees with above Reta Hale, PGY2
[2018-04-30] MEDS ORDERED: Clindamycin 300 MG in Sodium Chloride 0.9% 50 ML IVPB SCH ×2 (14:30→15:00)
[2018-04-30] MEDS ORDERED: Vancomycin 1 gm/NS 200 ml 1 GM/200 ML BAG IVPB STA (14:54)
[2018-04-30 15:34] LABS: URINE BILIRUBIN NEGATIVE (NEGATIVE); URINE BLOOD NEGATIVE (NEGATIVE); URINE CLARITY Hazy (Clear); URINE COLOR Yellow (YELLOW); URINE GLUCOSE (UA) NORMAL (Normal); URINE LEUKOCYTE ESTERASE NEG Leu/uL (Negative); URINE PROTEIN NEGATIVE (NEGATIVE); URINE UROBILINOGEN NORMAL mg/dL (0.2-1.0)
--- NOTE | 2018-04-30 15:38 | CP.PCM.PN ---
Subjective - Date & Time of Evaluation Date of Evaluation: 04/30/18 Time of Evaluation: 15:30 - Subjective Subjective: Requested consultation for : Mediastinitis. Requested by Dr. Azul Pt s/e. chart, labs, and imaging studies reviewed. 42 yo male presented to ER with hx of neck and chest pain. CT of chest and neck: Massive soft tissue swelling in the neck bilat, and upper mediastinum considtent with ?cellulitis. No tenderness or erythema. a/p: Probable early descending mediastinitis. stat ENT consult. ID consult. Anesthesiology consult-? intubation trauma. Antibiotics if indicated. Objective - Vital Signs/Intake and Output Vital Signs (last 24 hours): Temp Pulse Resp BP Pulse Ox 98.5 F 60 20 118/72 97 04/30/18 07:28 04/30/18 07:28 04/30/18 07:28 04/30/18 07:28 04/30/18 07:28 Intake and Output: 04/30/18 04/30/18 06:59 18:59 Intake Total 1600 Balance 1600 - Medications Medications: Current Medications Heparin Sodium (Porcine) (Heparin) 5,000 units SC Q8 [facility] Last Admin: 04/30/18 14:19 Dose: 5,000 units Dextrose/Sodium Chloride (Dextrose 5%/0.9% Ns 1000 Ml) 1,000 mls @ 100 mls/hr IV .Q10H [facility] Last Admin: 04/30/18 11:46 Dose: 100 mls/hr Clindamycin Phosphate 300 mg/ (Sodium Chloride) 52 mls @ 100 mls/hr IVPB Q6H [facility]; Protocol Vancomycin/Sodium Chloride (Vancomycin 1 Gm/Ns 200 Ml) 1 gm in 200 mls @ 133.333 mls/hr IVPB STAT STA; Protocol Stop: 04/30/18 16:23 Influenza Virus Vaccine (Fluzone Quad [id number]) 60 mcg IM .ONCE ONE Stop: 05/01/18 10:16 Morphine Sulfate (Morphine) 1 mg IVP Q6H PRN PRN Reason: Pain, moderate (4-7) Last Admin: 04/29/18 10:04 Dose: 1 mg Pneumococcal Polyvalent Vaccine (Pneumovax 23 Vaccine) 0.5 ml IM .ONCE ONE Stop: 05/01/18 10:01 - Labs Labs: 04/30/18 06:45 04/30/18 06:45 PT 15.6 SECONDS (9.7-12.2) H 04/28/18 19:52 INR 1.4 04/28/18 19:52 APTT 32 SECONDS (21-34) 04/28/18 19:52
--- NOTE | 2018-04-30 17:40 | CP.PCM.CON ---
Addendum entered and electronically signed by Hay Ryan DO 04/30/18 18:52: Pt medically stable to remain on floor, please re consult inclusion internship if pt condition worsens Original Note: History of Present Illness - History of Present Illness History of Present Illness: Patient is a 42M with past history significant for sleep apnea, ED yesterday AM with a severe headache. Swelling occured in his right neck. Pt complains of chest tightness. Symptoms started 48 hours ago. Patient reports pain in his neck and chest are worse with inspiration. Pt has been coughing since last night which also reproduces the pain. Pt also complains of submental and submandibular pain. Denies any SOB, palpitations, fevers, chills, left sided shoulder, neck or jaw pain, dysphagia, weakness, numbness or tingling, visions changes, nausea, vomiting, diarrhea, constipation or any other symptoms. Patient denies any recent trauma, dental procedures, illness, or sick contacts or travel outside of the country. Patient denies any complications after his surgery and is currently on no medications. Pt tolerating foods and liquids with normal swallowing an sensation. Of note; PRODUCTION SCHEDULER called to CT earlier in evening as pt had new onset facial allergic reaction, non anaphylactic to presumed iv contrast or toradol given by ED. Full resolution w/ Benadryl 50mg and solu-cortef 100mg PMD: Dr Graham PMH: obs sleep apnea PSH: cholecystectomy, right elbow tendon repair, laparoscopic umbilical hernia with mesh 04/17/18 ALL: iodine, toradol Social: denies any tobacco, ETOH, or drug use Review of Systems - Review of Systems All systems: reviewed and no additional remarkable complaints except (as per HPI) Past Patient History - Past Medical History & Family History Past Medical History?: Yes - Past Social History Smoking Status: Never Smoked Alcohol: None Drugs: Denies - CARDIAC Hx Cardiac Disorders: No - PULMONARY Hx Sleep Apnea: Yes (USES CPAP (?SETTING)) - NEUROLOGICAL Hx Neurological Disorder: No - HEENT Hx HEENT Problems: No - RENAL Hx Chronic Kidney Disease: No - ENDOCRINE/METABOLIC Hx Endocrine Disorders: No - HEMATOLOGICAL/ONCOLOGICAL Hx Blood Disorders: No - INTEGUMENTARY Hx Dermatological Problems: No - MUSCULOSKELETAL/RHEUMATOLOGICAL Hx Falls: No - GASTROINTESTINAL Hx Gall Bladder Disease: Yes - GENITOURINARY/GYNECOLOGICAL Hx Genitourinary Disorders: No - PSYCHIATRIC Hx Substance Use: No - SURGICAL HISTORY Hx Cholecystectomy: Yes - ANESTHESIA Hx Anesthesia: Yes Hx Anesthesia Reactions: No Hx Malignant Hyperthermia: No Meds Allergies/Adverse Reactions: Allergies Allergy/AdvReac Type Severity Reaction Status Date / Time iodine Allergy RASH Verified 04/28/18 22:55 - Medications Medications: Current Medications Heparin Sodium (Porcine) (Heparin) 5,000 units SC Q8 EFREN Last Admin: 04/30/18 14:19 Dose: 5,000 units Dextrose/Sodium Chloride (Dextrose 5%/0.9% Ns 1000 Ml) 1,000 mls @ 100 mls/hr IV .Q10H EFREN Last Admin: 04/30/18 11:46 Dose: 100 mls/hr Clindamycin Phosphate 600 mg/ (Sodium Chloride) 54 mls @ 100 mls/hr IVPB Q8H EFREN; Protocol Influenza Virus Vaccine (Fluzone Quad [id number]) 60 mcg IM .ONCE ONE Stop: 05/01/18 10:16 Morphine Sulfate (Morphine) 1 mg IVP Q6H PRN PRN Reason: Pain, moderate (4-7) Last Admin: 04/29/18 10:04 Dose: 1 mg Pneumococcal Polyvalent Vaccine (Pneumovax 23 Vaccine) 0.5 ml IM .ONCE ONE Stop: 05/01/18 10:01 Physical Exam - Constitutional Appears: Non-toxic, No Acute Distress - Head Exam Head Exam: absent: ATRAUMATIC, NORMAL INSPECTION - Eye Exam Eye Exam: EOMI, Normal appearance - ENT Exam ENT Exam: Mucous Membranes Moist - Neck Exam Neck exam: Positive for: Lymphadenopathy. Negative for: Thyromegaly Additional comments: soft supraclavicular generalized swelling in the anterior triangle R side - Expanded Neck Exam Expanded Expanded Neck Exam: Anterior Neck Swelling. absent: Tenderness, Thyroid Mass, Tracheal Deviation - Respiratory Exam Respiratory Exam: Clear to Auscultation Bilateral Additional comments: cough upon deep inspiration - Cardiovascular Exam Cardiovascular Exam: RRR, +S1, +S2 - GI/Abdominal Exam GI & Abdominal Exam: absent: Distended, Organomegaly, Rigid, Tenderness - Neurological Exam Neurological exam: Alert, CN II-XII Intact, Oriented x3 - Psychiatric Exam Psychiatric exam: Normal Affect, Normal Mood - Skin Skin Exam: Normal Color, Warm Results - Vital Signs Recent Vital Signs: Last Vital Signs Temp 98.5 F 10/01/18 16:29 Pulse 71 04/30/18 16:29 Resp 20 04/30/18 16:29 BP 122/81 04/30/18 16:29 Pulse Ox 97 04/30/18 16:29 - Labs Result Diagrams: 04/30/18 06:45 04/30/18 06:45 Labs: Laboratory Results - last 24 hr 04/30/18 04/30/18 04/30/18 06:45 06:45 15:15 WBC 6.3 RBC 4.30 L Hgb 14.1 Hct 41.4 MCV 96.2 H MCH 32.7 H MCHC 34.0 RDW 13.1 Plt Count 202 MPV 9.8 Neut % (Auto) 63.8 Lymph % (Auto) 20.0 [place] % (Auto) 8.2 Eos % (Auto) 7.1 H Baso % (Auto) 0.9 Neut # (Auto) 4.0 Lymph # (Auto) 1.3 [place] # (Auto) 0.5 Eos # (Auto) 0.4 Baso # (Auto) 0.1 Sodium 142 Potassium 3.7 Chloride 107 Carbon Dioxide 26 Anion Gap 13 BUN 19 Creatinine 0.7 L Est GFR ( Amer) > 60 Est GFR (Non-Af Amer) > 60 Random Glucose 104 Calcium 8.3 L Phosphorus 4.3 Magnesium 2.0 Total Bilirubin 0.5 AST 45 ALT 87 H D Alkaline Phosphatase 96 Lactate Dehydrogenase 311 L Total Protein 6.3 Albumin 3.3 L D Globulin 3.0 Albumin/Globulin Ratio 1.1 Urine Color Urine Clarity Urine pH Ur Specific [place] Urine Protein Urine Glucose (UA) Urine Ketones Urine Blood Urine Nitrate Urine Bilirubin Urine Urobilinogen Ur Leukocyte Esterase Urine RBC (Auto) Grp A Beta Strep Ag Negative 04/30/18 15:15 WBC RBC Hgb Hct MCV MCH MCHC RDW Plt Count MPV Neut % (Auto) Lymph % (Auto) [place] % (Auto) Eos % (Auto) Baso % (Auto) Neut # (Auto) Lymph # (Auto) [place] # (Auto) Eos # (Auto) Baso # (Auto) Sodium Potassium Chloride Carbon Dioxide Anion Gap BUN Creatinine Est GFR ( Amer) Est GFR (Non-Af Amer) Random Glucose Calcium Phosphorus Magnesium Total Bilirubin AST ALT Alkaline Phosphatase Lactate Dehydrogenase Total Protein Albumin Globulin Albumin/Globulin Ratio Urine Color Yellow Urine Clarity Hazy Urine pH 5.0 Ur Specific [place] 1.023 Urine Protein Negative Urine Glucose (UA) Normal Urine Ketones Negative Urine Blood Negative Urine Nitrate Negative Urine Bilirubin Negative Urine Urobilinogen Normal Ur Leukocyte Esterase Neg Urine RBC (Auto) < 1 Grp A Beta Strep Ag Assessment & Plan - Assessment and Plan (Free Text) Assessment: 42yo M w/ pmhx of Obs Sleep Apnea with possible mediastinitis. Plan: 04/[address]: -inflammatory process vs infiltrative process of Mediastinum -no obvious mass -small cervical lymphnodes ENT consulted - Dr Mcgovern -f/u recs Pt O2 saturation within normal limits -maintain >90% Speach and Swallow eval f/u recs Thorasic Sx consulted (Dr Hernandez) f/u recs: -Probable early descending mediastinitis. stat ENT consult. ID consult. Antibiotics if indicated. Continue with medical management case discussed with Dr Michelle Ryan PGY1
--- NOTE | 2018-04-30 20:56 | CP.PCM.CON ---
History of Present Illness - History of Present Illness History of Present Illness: dictated Past Patient History - Past Medical History & Family History Past Medical History?: Yes - Past Social History Smoking Status: Never Smoked Alcohol: None Drugs: Denies - CARDIAC Hx Cardiac Disorders: No - PULMONARY Hx Sleep Apnea: Yes (USES CPAP (?SETTING)) - NEUROLOGICAL Hx Neurological Disorder: No - HEENT Hx HEENT Problems: No - RENAL Hx Chronic Kidney Disease: No - ENDOCRINE/METABOLIC Hx Endocrine Disorders: No - HEMATOLOGICAL/ONCOLOGICAL Hx Blood Disorders: No - INTEGUMENTARY Hx Dermatological Problems: No - MUSCULOSKELETAL/RHEUMATOLOGICAL Hx Falls: No - GASTROINTESTINAL Hx Gall Bladder Disease: Yes - GENITOURINARY/GYNECOLOGICAL Hx Genitourinary Disorders: No - PSYCHIATRIC Hx Substance Use: No - SURGICAL HISTORY Hx Cholecystectomy: Yes - ANESTHESIA Hx Anesthesia: Yes Hx Anesthesia Reactions: No Hx Malignant Hyperthermia: No Meds Allergies/Adverse Reactions: Allergies Allergy/AdvReac Type Severity Reaction Status Date / Time iodine Allergy RASH Verified 04/28/18 22:55 - Medications Medications: Current Medications Heparin Sodium (Porcine) (Heparin) 5,000 units SC Q8 EFREN Last Admin: 04/30/18 14:19 Dose: 5,000 units Dextrose/Sodium Chloride (Dextrose 5%/0.9% Ns 1000 Ml) 1,000 mls @ 100 mls/hr IV .Q10H [facility] Last Admin: 04/30/18 11:46 Dose: 100 mls/hr Clindamycin Phosphate 600 mg/ (Sodium Chloride) 54 mls @ 100 mls/hr IVPB Q8H EFREN; Protocol Influenza Virus Vaccine (Fluzone Quad [id number]) 60 mcg IM .ONCE ONE Stop: 05/01/18 10:16 Morphine Sulfate (Morphine) 1 mg IVP Q6H PRN PRN Reason: Pain, moderate (4-7) Last Admin: 04/29/18 10:04 Dose: 1 mg Pneumococcal Polyvalent Vaccine (Pneumovax 23 Vaccine) 0.5 ml IM .ONCE ONE Stop: 05/01/18 10:01 Results - Vital Signs Recent Vital Signs: Last Vital Signs Temp 98.5 F 04/30/18 16:29 Pulse 71 04/30/18 16:29 Resp 20 04/30/18 16:29 BP 122/81 04/30/18 16:29 Pulse Ox 97 04/30/18 16:29 - Labs Result Diagrams: 04/30/18 06:45 04/30/18 06:45 Labs: Laboratory Results - last 24 hr 04/30/18 04/30/18 04/30/18 06:45 06:45 15:15 WBC 6.3 RBC 4.30 L Hgb 14.1 Hct 41.4 MCV 96.2 H MCH 32.7 H MCHC 34.0 RDW 13.1 Plt Count 202 MPV 9.8 Neut % (Auto) 63.8 Lymph % (Auto) 20.0 [place] % (Auto) 8.2 Eos % (Auto) 7.1 H Baso % (Auto) 0.9 Neut # (Auto) 4.0 Lymph # (Auto) 1.3 [place] # (Auto) 0.5 Eos # (Auto) 0.4 Baso # (Auto) 0.1 Sodium 142 Potassium 3.7 Chloride 107 Carbon Dioxide 26 Anion Gap 13 BUN 19 Creatinine 0.7 L Est GFR ( Amer) > 60 Est GFR (Non-Af Amer) > 60 Random Glucose 104 Calcium 8.3 L Phosphorus 4.3 Magnesium 2.0 Total Bilirubin 0.5 AST 45 ALT 87 H D Alkaline Phosphatase 96 Lactate Dehydrogenase 311 L Total Protein 6.3 Albumin 3.3 L D Globulin 3.0 Albumin/Globulin Ratio 1.1 Urine Color Urine Clarity Urine pH Ur Specific [place] Urine Protein Urine Glucose (UA) Urine Ketones Urine Blood Urine Nitrate Urine Bilirubin Urine Urobilinogen Ur Leukocyte Esterase Urine RBC (Auto) Grp A Beta Strep Ag Negative 04/30/18 15:15 WBC RBC Hgb Hct MCV MCH MCHC RDW Plt Count MPV Neut % (Auto) Lymph % (Auto) [place] % (Auto) Eos % (Auto) Baso % (Auto) Neut # (Auto) Lymph # (Auto) [place] # (Auto) Eos # (Auto) Baso # (Auto) Sodium Potassium Chloride Carbon Dioxide Anion Gap BUN Creatinine Est GFR ( Amer) Est GFR (Non-Af Amer) Random Glucose Calcium Phosphorus Magnesium Total Bilirubin AST ALT Alkaline Phosphatase Lactate Dehydrogenase Total Protein Albumin Globulin Albumin/Globulin Ratio Urine Color Yellow Urine Clarity Hazy Urine pH 5.0 Ur Specific [place] 1.023 Urine Protein Negative Urine Glucose (UA) Normal Urine Ketones Negative Urine Blood Negative Urine Nitrate Negative Urine Bilirubin Negative Urine Urobilinogen Normal Ur Leukocyte Esterase Neg Urine RBC (Auto) < 1 Grp A Beta Strep Ag
--- NOTE | 2018-04-30 21:11 | CP.PCM.CON ---
History of Present Illness - History of Present Illness History of Present Illness: 42 year old male with a history of FLACO using CPAP, recent umbilical hernia repair, presenting with posterior neck pain radiating down his chest and associated with dysphagia, with imaging concerning for mediastinitis. The patient notes to his symptoms beginning early in the morning and began to worsen. This prompted him to come to ther ER. Imaging is concerning for mediastinitis but cannot rule out atypical malignant process. Past medical history: FLACO on CPAP Past surgical history: laparoscopic hernia repair 2 weeks ago Family history: Denies hematologic and oncologic problems Social history: Denies tobacco, alcohol, and illicit drug use. Allergies: Iodine Review of systems: All remaining review of systems including HEENT, cardiovascular, respiratory, gastrointestinal, genitourinary, musculoskeletal, dermatologic, neurologic, and psychiatric are negative unless mentioned in the HPI. Past Patient History - Past Medical History & Family History Past Medical History?: Yes - Past Social History Smoking Status: Never Smoked Alcohol: None Drugs: Denies - CARDIAC Hx Cardiac Disorders: No - PULMONARY Hx Sleep Apnea: Yes (USES CPAP (?SETTING)) - NEUROLOGICAL Hx Neurological Disorder: No - HEENT Hx HEENT Problems: No - RENAL Hx Chronic Kidney Disease: No - ENDOCRINE/METABOLIC Hx Endocrine Disorders: No - HEMATOLOGICAL/ONCOLOGICAL Hx Blood Disorders: No - INTEGUMENTARY Hx Dermatological Problems: No - MUSCULOSKELETAL/RHEUMATOLOGICAL Hx Falls: No - GASTROINTESTINAL Hx Gall Bladder Disease: Yes - GENITOURINARY/GYNECOLOGICAL Hx Genitourinary Disorders: No - PSYCHIATRIC Hx Substance Use: No - SURGICAL HISTORY Hx Cholecystectomy: Yes - ANESTHESIA Hx Anesthesia: Yes Hx Anesthesia Reactions: No Hx Malignant Hyperthermia: No Meds Allergies/Adverse Reactions: Allergies Allergy/AdvReac Type Severity Reaction Status Date / Time iodine Allergy RASH Verified 04/28/18 22:55 - Medications Medications: Current Medications Heparin Sodium (Porcine) (Heparin) 5,000 units SC Q8 EFREN Last Admin: 04/30/18 14:19 Dose: 5,000 units Dextrose/Sodium Chloride (Dextrose 5%/0.9% Ns 1000 Ml) 1,000 mls @ 100 mls/hr IV .Q10H EFREN Last Admin: 04/30/18 11:46 Dose: 100 mls/hr Clindamycin Phosphate 600 mg/ (Sodium Chloride) 54 mls @ 100 mls/hr IVPB Q8H EFREN; Protocol Influenza Virus Vaccine (Fluzone Quad [id number]) 60 mcg IM .ONCE ONE Stop: 05/01/18 10:16 Morphine Sulfate (Morphine) 1 mg IVP Q6H PRN PRN Reason: Pain, moderate (4-7) Last Admin: 04/29/18 10:04 Dose: 1 mg Pneumococcal Polyvalent Vaccine (Pneumovax 23 Vaccine) 0.5 ml IM .ONCE ONE Stop: 05/01/18 10:01 Physical Exam - Head Exam Head Exam: ATRAUMATIC - Eye Exam Eye Exam: Normal appearance - ENT Exam ENT Exam: Mucous Membranes Dry - Respiratory Exam Respiratory Exam: NORMAL BREATHING PATTERN - Cardiovascular Exam Cardiovascular Exam: +S1, +S2 - GI/Abdominal Exam GI & Abdominal Exam: Normal Bowel Sounds - Extremities Exam Extremities exam: Positive for: normal inspection - Neurological Exam Neurological exam: Oriented x3 - Psychiatric Exam Psychiatric exam: Normal Affect, Normal Mood - Skin Skin Exam: Warm Results - Vital Signs Recent Vital Signs: Last Vital Signs Temp 98.5 F 04/30/18 16:29 Pulse 71 04/30/18 16:29 Resp 20 04/30/18 16:29 BP 122/81 04/30/18 16:29 Pulse Ox 97 04/30/18 16:29 - Labs Result Diagrams: 05/01/18 07:45 05/01/18 07:45 Labs: Laboratory Results - last 24 hr 04/30/18 04/30/18 04/30/18 06:45 06:45 15:15 WBC 6.3 RBC 4.30 L Hgb 14.1 Hct 41.4 MCV 96.2 H MCH 32.7 H MCHC 34.0 RDW 13.1 Plt Count 202 MPV 9.8 Neut % (Auto) 63.8 Lymph % (Auto) 20.0 [place] % (Auto) 8.2 Eos % (Auto) 7.1 H Baso % (Auto) 0.9 Neut # (Auto) 4.0 Lymph # (Auto) 1.3 [place] # (Auto) 0.5 Eos # (Auto) 0.4 Baso # (Auto) 0.1 Sodium 142 Potassium 3.7 Chloride 107 Carbon Dioxide 26 Anion Gap 13 BUN 19 Creatinine 0.7 L Est GFR ( Amer) > 60 Est GFR (Non-Af Amer) > 60 Random Glucose 104 Calcium 8.3 L Phosphorus 4.3 Magnesium 2.0 Total Bilirubin 0.5 AST 45 ALT 87 H D Alkaline Phosphatase 96 Lactate Dehydrogenase 311 L Total Protein 6.3 Albumin 3.3 L D Globulin 3.0 Albumin/Globulin Ratio 1.1 Urine Color Urine Clarity Urine pH Ur Specific [place] Urine Protein Urine Glucose (UA) Urine Ketones Urine Blood Urine Nitrate Urine Bilirubin Urine Urobilinogen Ur Leukocyte Esterase Urine RBC (Auto) Grp A Beta Strep Ag Negative 04/30/18 15:15 WBC RBC Hgb Hct MCV MCH MCHC RDW Plt Count MPV Neut % (Auto) Lymph % (Auto) [place] % (Auto) Eos % (Auto) Baso % (Auto) Neut # (Auto) Lymph # (Auto) [place] # (Auto) Eos # (Auto) Baso # (Auto) Sodium Potassium Chloride Carbon Dioxide Anion Gap BUN Creatinine Est GFR ( Amer) Est GFR (Non-Af Amer) Random Glucose Calcium Phosphorus Magnesium Total Bilirubin AST ALT Alkaline Phosphatase Lactate Dehydrogenase Total Protein Albumin Globulin Albumin/Globulin Ratio Urine Color Yellow Urine Clarity Hazy Urine pH 5.0 Ur Specific [place] 1.023 Urine Protein Negative Urine Glucose (UA) Normal Urine Ketones Negative Urine Blood Negative Urine Nitrate Negative Urine Bilirubin Negative Urine Urobilinogen Normal Ur Leukocyte Esterase Neg Urine RBC (Auto) < 1 Grp A Beta Strep Ag Assessment & Plan (1) Mediastinal disease Assessment and Plan: suspect infectious etiology; empiric ABX CT surgery and ENT evaluation further evaluation and w/u based on above consultants evaluation Thank you for this interesting consult. Status: Acute
[2018-05-01] MEDS: Dextrose 5%/0.9% NS 1,000 ML IV SCH ×3 (04:28→16:04)
[2018-05-01] MEDS: Vancomycin 1 gm/NS 200 ml 1 GM/200 ML BAG IVPB SCH ×2 (04:53→17:22)
--- NOTE | 2018-05-01 05:18 | CON ---
DATE: 04/30/2018 INFECTIOUS DISEASE CONSULT HISTORY OF PRESENT ILLNESS: This patient is a 42-year-old male. He has tells me that he had umbilical hernia, and he had a hernia surgery done with a mass on 04/17/2018, and he was recuperating at home. On Monday, he started to have severe headache and noted some swelling in the neck with the pain and also he says when he breathes it also hurts and he points to the right side of his face. Now he says it has also gone on the left side. The patient does use CPAP as he is obese. His weight is 249 here, written in BSA is 2.28, BMI is 41. The patient denies any fevers. He does have some lesion on his face but he said this he had a reaction to the IV dye which was given to do the test. He denied any fever, no chills. He denies any difficulty swallowing. No neck pain. No jaw pain, but has the swelling on the right neck and now also on the left neck he says. He denies any instrumentation. Denies any recent trauma. He denies any travel. He denies any issues with his work because he is not working. He cleans the CPAP machine with water and vinegar every week. He denies any other illnesses. He does suffer from sleep apnea. Surgical history of cholecystectomy, gallbladder disease, right elbow tendon repair, and laparoscopic umbilical hernia with mesh which was placed on 04/17, and the wound is healing. HE IS ALLERGIC TO IODINE VERSUS TORADOL HE DEVELOPED RASH. SOCIAL HISTORY: Negative for smoking or drinking or any drugs. Denies any cardiac issues. Does have history of sleep apnea. Denies any pneumonias in the past. Denies any neurological problems. No renal issues. No endocrine problems. No blood disorder. No dermatological problems. No fall. He did have a gallbladder surgery in the past and has umbilical hernia surgery recently. He denies any urinary symptoms. No dysuria, urgency, frequency. No nausea, vomiting, diarrhea. He only says when he takes a deep breath and lies on the left side, it hurts, so it is very nonspecific. ALLERGIES: HE IS ALLERGIC TO IODINE. MEDICATIONS: He did get a dose of vancomycin, and he was on clindamycin so I upped the dose to 600 every 8 hours to cover optimal and to give him optimal dose. PHYSICAL EXAMINATION: GENERAL: On examination, I find, he was drowsy and snoring when I went to see him but he appeared to be in no acute respiratory distress. VITAL SIGNS: He has been here since 04/28. He has been afebrile. T-max is 98.5, pulse 71, blood pressure 122/81, respirations are 20. HEENT: Head is atraumatic, normocephalic. Pupils are reacting to light. Throat, I could not see beyond the tongue. NECK: Supple. No lymphadenopathy present. There was no warmth. No redness on the neck, just swelling noted on both sides, right more than left. LUNGS: Clear. No crackles or rales present. He is not using any accessory muscles and his voice is unremarkable. He denies any swallowing trouble. HEART: S1, S2 regular. ABDOMEN: Soft, nontender. No guarding, no rigidity present. EXTREMITIES: Have no edema, clubbing, or cyanosis, and he is moving all his extremities. SKIN: Warm to touch. Labs were noted. Labs show white count is 6.3, hemoglobin 14.1, hematocrit 41.4, platelet count is 202. Eosinophils are 7.1. He did have a reaction to iodine he said when he get the CAT scans done. Sodium is 142, creatinine is 0.7. His lactate dehydrogenase is 311, which normal is different in this hospital. The CK is 23, is not bad. Troponin is unremarkable. C-reactive protein is 12.20, so there is something going on. UA is negative. Group A strep antigen was negative. Blood cultures, throat culture, and urine culture were ordered today. We will need to see that when the reports are up. Head CT was done which was negative. Soft tissue neck CT was performed which showed extensive infiltrative changes seen within the mediastinal fat extending superiorly into the supraclavicular subcutaneous tissue. There are also infiltrative changes within the anterior subcutaneous tissue into the mid upper chest and mid and bilateral parasagittal upper chest wall also on the right. Findings are of uncertain etiology. Suggest diffuse inflammatory process, cellulitis versus mediastinitis, edema or other infiltrative process such as atypical neoplastic syndrome. No distinct upper mediastinal mass. No obvious distinct mass seen in the soft tissue of the neck. Multiple small nonspecific bilateral cervical lymph nodes are present. Thyroid gland is dimunitive and clearly delineated due to hardening artifact and minor asymmetry of vallecular, likely due to some encroachment of the lingula tonsils of residual and/or retained secretions may contribute. This is also asymmetry of piriform sinuses, left side, which is smaller than the right. However, no masses are identified. Airway is diminished in the level of the true vocal cords, possibly due to Valsalva or phonation during image acquisition. There is straightening of the normal cervical lordosis, likely due to the patient's positioning in the gantry. He does have extensive infiltration of the fat in the neck and in the chest wall of unclear etiology. He is not running any fevers. He has no white count. His ESR is normal. However, his CRP is elevated, it is very unclear. We will leave him on vancomycin and clindamycin at this time, and we will follow. We will need to see what the ENT has to say because this is unusual sort of swelling and unable to determine why he got it and is with infectious or inflammatory, we will follow with other specialties. Emre Clements MD
[2018-05-01 07:59] LABS: BASO % 0.7 % (0.0-2.0); EOS # 0.4 K/uL (0.0-0.7); EOS % 7.6 % (0.0-4.0); LYMPH # 1.5 K/uL (1.0-4.3); LYMPH % 27.8 % (20.0-40.0); MEAN CELL VOLUME 96.2 fL (80.0-94.0); MEAN CORPUSCULAR HEMOGLOBIN 33.3 pg (27.0-31.0); MEAN CORPUSCULAR HGB CONC 34.6 g/dL (33.0-37.0); MEAN PLATELET VOLUME 10.2 fL (7.2-11.7); MONO # 0.4 K/uL (0.0-0.8); MONO % 7.4 % (0.0-10.0); NEUT % 56.5 % (50.0-75.0); RBC 4.21 Mil/uL (4.40-5.90); RED CELL DISTRIBUTION WIDTH 12.9 % (11.5-14.5); WHITE BLOOD COUNT 5.3 K/uL (4.8-10.8)
[2018-05-01 08:32] LABS: ALB/GLOB RATIO 1.2 (1.0-2.1); ALBUMIN 3.8 g/dL (3.5-5.0); ALT/SGPT 79 U/L (21-72); AST/SGOT 39 U/L (17-59); BLOOD UREA NITROGEN 10 mg/dL (9-20); CALCIUM 8.6 mg/dl (8.6-10.4); GFR NON-AFRICAN AMERICAN > 60
--- NOTE | 2018-05-01 08:39 | CP.PCM.PN ---
Subjective - Date & Time of Evaluation Date of Evaluation: 05/01/18 Time of Evaluation: 06:40 - Subjective Subjective: Cardithoracic progress note for Dr. Hernandez Pt seen and examined at bedside, no adverse events overnight. Pt states that pain is mildly improved and denies any respiratory distress but states that he was unable to sleep without his CPAP. Pt denies any fevers. Objective - Vital Signs/Intake and Output Vital Signs (last 24 hours): Temp Pulse Resp BP Pulse Ox 98.1 F 59 L 20 127/82 96 05/01/18 07:10 05/01/18 07:10 05/01/18 07:10 05/01/18 07:10 05/01/18 07:10 Intake and Output: 05/01/18 05/01/18 06:59 18:59 Intake Total 1850 Balance 1850 - Medications Medications: Current Medications Heparin Sodium (Porcine) (Heparin) 5,000 units SC Q8 EFREN Last Admin: 05/01/18 05:48 Dose: 5,000 units Dextrose/Sodium Chloride (Dextrose 5%/0.9% Ns 1000 Ml) 1,000 mls @ 100 mls/hr IV .Q10H EFREN Last Admin: 05/01/18 06:08 Dose: Not Given Clindamycin Phosphate 600 mg/ (Sodium Chloride) 54 mls @ 100 mls/hr IVPB Q8H EFREN; Protocol Last Admin: 05/01/18 06:59 Dose: 100 mls/hr Vancomycin/Sodium Chloride (Vancomycin 1 Gm/Ns 200 Ml) 1 gm in 200 mls @ 133 mls/hr IVPB Q12H EFREN; Protocol Stop: 05/06/18 05:01 Last Admin: 05/01/18 04:53 Dose: 133 mls/hr Influenza Virus Vaccine (Fluzone Quad [id number]) 60 mcg IM .ONCE ONE Stop: 05/01/18 10:16 Morphine Sulfate (Morphine) 1 mg IVP Q6H PRN PRN Reason: Pain, moderate (4-7) Last Admin: 04/29/18 10:04 Dose: 1 mg Pneumococcal Polyvalent Vaccine (Pneumovax 23 Vaccine) 0.5 ml IM .ONCE ONE Stop: 05/01/18 10:01 - Labs Labs: 05/01/18 07:45 05/01/18 07:45 PT 15.6 SECONDS (9.7-12.2) H 04/28/18 19:52 INR 1.4 04/28/18 19:52 APTT 32 SECONDS (21-34) 04/28/18 19:52 - Constitutional Appears: Well, Non-toxic, No Acute Distress - Head Exam Head Exam: ATRAUMATIC, NORMOCEPHALIC - Eye Exam Eye Exam: Normal appearance. absent: Conjunctival injection, Scleral icterus - ENT Exam ENT Exam: Mucous Membranes Moist - Neck Exam Additional comments: persistent swelling and tissue bogginess of the right neck extending to the clavicle. trachea midline, no palpable lymphadenopathy or crepitus - Respiratory Exam Respiratory Exam: NORMAL BREATHING PATTERN. absent: Accessory Muscle Use, Respiratory Distress - Cardiovascular Exam Cardiovascular Exam: RRR - GI/Abdominal Exam GI & Abdominal Exam: Soft. absent: Distended, Tenderness - Neurological Exam Neurological Exam: Alert, Awake, Oriented x3 - Psychiatric Exam Psychiatric exam: Normal Affect, Normal Mood - Skin Skin Exam: Dry, Normal Color, Warm Assessment and Plan - Assessment and Plan (Free Text) Assessment: 42M with mediastinitis and right neck/chest subcutaneous inflammation of unknown origin Plan: Continue to trend CBC F/U ENT and ID recs Antibiotics per ID Recommend anesthesia consult to evaluate for possible trauma from intubation 2 weeks ago Continue conservative management at this time--mediastinitis more likely an upper infection that has spread inferiorly--full evaluation for possible pha ryngeal/esophageal trauma or upper respiratory tract infection should be worked up. No surgical intervention planned at this time Discussed with Dr. Hernandez, who agrees with above Reta Hale PGY2
[2018-05-01] MEDS ORDERED: Pneumococcal 23-Valent Vaccine IM ONE (10:00)
[2018-05-01] MEDS ORDERED: Influenza Vaccine 60 MCG/0.5 ML SYR (3 yr & up) IM ONE (10:15)
--- NOTE | 2018-05-01 12:17 | CP.PCM.PN ---
Subjective - Date & Time of Evaluation Date of Evaluation: 05/01/18 Time of Evaluation: 12:00 - Subjective Subjective: Anesthesia follow up note Patient is 42yo obese male with PMHx of FLACO on CPAP at home who is s/p robotic assisted laparoscopic umbilical hernia repair on 04/17. He presented on 04/28 with complaints of right sided postauricular pain which then radiated down the neck/chest and into the shoulder, subsequently had bilateral shoulder pain and lower neck tightness/discomfort. According to the patient the recovery from surgery was uneventful and patient was eating well and tolerating po intake. Denies dysphagia, nausea/vomiting, fever, swelling or bleeding in the oral cavity, or shortness of breath. CT neck revealed mediastinal fat extending superiorly into supraclavicular subcutaneous tissue with bilateral lower neck, questionable for diffuse inflammatory process (cellulitis/mediastinitis). Since admission patient remain afebrile with no elevated wbc however has elevated CRP. Currently on antibiotics and reports pain/discomfort has improved. Patient does not appear to have asymmetrical swelling of the neck, no tenderness to palpation of neck and shoulder. Oral/oralpharynx cavity normal appearance. At this time unclear of the etiology however patient is responding to antibiotics. Spoke to ENT Dr. Purcell and he recommends esophagogram study and pulmonary consult. Objective - Vital Signs/Intake and Output Vital Signs (last 24 hours): Temp Pulse Resp BP Pulse Ox 98.1 F 59 L 20 127/82 96 05/01/18 07:10 05/01/18 07:10 05/01/18 07:10 05/01/18 07:10 05/01/18 07:10 Intake and Output: 05/01/18 05/01/18 06:59 18:59 Intake Total 1850 Balance 1850 - Medications Medications: Current Medications Heparin Sodium (Porcine) (Heparin) 5,000 units SC Q8 EFREN Last Admin: 05/01/18 05:48 Dose: 5,000 units Dextrose/Sodium Chloride (Dextrose 5%/0.9% Ns 1000 Ml) 1,000 mls @ 100 mls/hr IV .Q10H EFREN Last Admin: 05/01/18 06:08 Dose: Not Given Clindamycin Phosphate 600 mg/ (Sodium Chloride) 54 mls @ 100 mls/hr IVPB Q8H EFREN; Protocol Last Admin: 10/02/18 06:59 Dose: 100 mls/hr Vancomycin/Sodium Chloride (Vancomycin 1 Gm/Ns 200 Ml) 1 gm in 200 mls @ 133 mls/hr IVPB Q12H EFREN; Protocol Stop: 05/06/18 05:01 Last Admin: 05/01/18 04:53 Dose: 133 mls/hr Morphine Sulfate (Morphine) 1 mg IVP Q6H PRN PRN Reason: Pain, moderate (4-7) Last Admin: 04/29/18 10:04 Dose: 1 mg - Labs Labs: 05/01/18 07:45 05/01/18 07:45 PT 15.6 SECONDS (9.7-12.2) H 04/28/18 19:52 INR 1.4 04/28/18 19:52 APTT 32 SECONDS (21-34) 04/28/18 19:52
--- NOTE | 2018-05-01 14:25 | CP.PCM.PN ---
Subjective - Date & Time of Evaluation Date of Evaluation: 05/01/18 Time of Evaluation: 14:23 - Subjective Subjective: [id number] Esophagogram this pm. Objective - Vital Signs/Intake and Output Vital Signs (last 24 hours): Temp Pulse Resp BP Pulse Ox 98.1 F 61 20 127/82 96 05/01/18 07:10 05/01/18 12:23 05/01/18 07:10 05/01/18 07:10 05/01/18 07:10 Intake and Output: 05/01/18 05/01/18 06:59 18:59 Intake Total 1850 Balance 1850 - Medications Medications: Current Medications Heparin Sodium (Porcine) (Heparin) 5,000 units SC Q8 EFREN Last Admin: 05/01/18 13:50 Dose: 5,000 units Dextrose/Sodium Chloride (Dextrose 5%/0.9% Ns 1000 Ml) 1,000 mls @ 100 mls/hr IV .Q10H EFREN Last Admin: 05/01/18 06:08 Dose: Not Given Clindamycin Phosphate 600 mg/ (Sodium Chloride) 54 mls @ 100 mls/hr IVPB Q8H EFREN; Protocol Last Admin: 05/01/18 06:59 Dose: 100 mls/hr Vancomycin/Sodium Chloride (Vancomycin 1 Gm/Ns 200 Ml) 1 gm in 200 mls @ 133 mls/hr IVPB Q12H EFREN; Protocol Stop: 05/06/18 05:01 Last Admin: 05/01/18 04:53 Dose: 133 mls/hr Morphine Sulfate (Morphine) 1 mg IVP Q6H PRN PRN Reason: Pain, moderate (4-7) Last Admin: 04/29/18 10:04 Dose: 1 mg - Labs Labs: 05/01/18 07:45 05/01/18 07:45 PT 15.6 SECONDS (9.7-12.2) H 04/28/18 19:52 INR 1.4 04/28/18 19:52 APTT 32 SECONDS (21-34) 04/28/18 19:52
[2018-05-01] MEDS ORDERED: Iohexol 240 200 ML ONE (14:58)
--- NOTE | 2018-05-01 16:24 | RAD ---
Date of service: 05/01/2018 HISTORY: Dysphagia. COMPARISON: None. TECHNIQUE: An esophagram was performed initially using nonionic contrast material followed by density barium. Imaging was acquired in erect and right anterior oblique prone positions. Total radiation dose-154.02 mGy. 1.3 min of fluoroscopy time was utilized. FINDINGS: Patient tolerated procedure well. ESOPHAGUS: No suspicious esophageal defects are identified and is no suspicious filling defect or contrast collection or definite pattern suggests esophageal extravasation. Trace residual oral contrast was encountered within the lumen of the esophagus at the in the examination. There is a small sliding hiatal hernia identified. HIATAL HERNIA: As above. GASTROESOPHAGEAL REFLUX: Not demonstrated. OTHER FINDINGS: None. IMPRESSION: No overt fluoroscopic pattern that would suggest esophageal extravasation oral contrast material and accordingly, a perforation has not been demonstrated. Small sliding hiatal hernia. No demonstrated gastroesophageal reflux.
--- NOTE | 2018-05-01 21:48 | CP.PCM.PN ---
Subjective - Date & Time of Evaluation Date of Evaluation: 05/01/18 Time of Evaluation: 07:15 - Subjective Subjective: PGY-[address] Laurent service Patient is seen and examined at bedside. Patient states pain is improving. Patient continues to experience pain in front of chest area, and it gets worse when coughing. patient states having some congestion and dryness overnight. Patient denies fevers, chills, nausea, vomiting, shortness of breath, chest pain, diarrhea or constipation. Patient admits to occasionally experiencing headaches. Patient is out of bed and ambulating. Patient is NPO at this time. Objective - Vital Signs/Intake and Output Vital Signs (last 24 hours): Temp Pulse Resp BP Pulse Ox 98.4 F 74 20 124/83 95 05/01/18 15:47 05/01/18 15:51 05/01/18 15:47 05/01/18 15:47 05/01/18 15:47 - Medications Medications: Current Medications Heparin Sodium (Porcine) (Heparin) 5,000 units SC Q8 EFREN Last Admin: 05/01/18 21:14 Dose: Not Given Dextrose/Sodium Chloride (Dextrose 5%/0.9% Ns 1000 Ml) 1,000 mls @ 100 mls/hr IV .Q10H EFREN Last Admin: 05/01/18 16:04 Dose: 100 mls/hr Clindamycin Phosphate 600 mg/ (Sodium Chloride) 54 mls @ 100 mls/hr IVPB Q8H EFREN; Protocol Last Admin: 05/01/18 16:04 Dose: 100 mls/hr Vancomycin/Sodium Chloride (Vancomycin 1 Gm/Ns 200 Ml) 1 gm in 200 mls @ 133 mls/hr IVPB Q12H EFREN; Protocol Stop: 05/06/18 05:01 Last Admin: 05/01/18 17:22 Dose: 133 mls/hr Morphine Sulfate (Morphine) 1 mg IVP Q6H PRN PRN Reason: Pain, moderate (4-7) Last Admin: 05/01/18 16:27 Dose: 1 mg - Labs Labs: 05/01/18 07:45 05/01/18 07:45 PT 15.6 SECONDS (9.7-12.2) H 04/28/18 19:52 INR 1.4 04/28/18 19:52 APTT 32 SECONDS (21-34) 04/28/18 19:52 - Constitutional Appears: Non-toxic, No Acute Distress - Head Exam Head Exam: ATRAUMATIC, NORMAL INSPECTION, NORMOCEPHALIC - Eye Exam Eye Exam: EOMI, Normal appearance - ENT Exam ENT Exam: Mucous Membranes Moist, Normal Exam - Neck Exam Neck Exam: Full ROM, Normal Inspection Additional comments: swelling on right anterior triangle of neck with no palpable lymphadenopathy, nontender, not warm to palpation. - Respiratory Exam Respiratory Exam: Clear to Ausculation Bilateral, NORMAL BREATHING PATTERN. absent: Accessory Muscle Use, Respiratory Distress - Cardiovascular Exam Cardiovascular Exam: REGULAR RHYTHM, +S1, +S2 - GI/Abdominal Exam GI & Abdominal Exam: Soft. absent: Distended, Guarding, Rigid, Tenderness - Extremities Exam Extremities Exam: Full ROM, Normal Inspection - Back Exam Back Exam: NORMAL INSPECTION - Neurological Exam Neurological Exam: Alert, Awake, Oriented x3 - Psychiatric Exam Psychiatric exam: Normal Affect, Normal Mood - Skin Skin Exam: Dry, Intact, Normal Color, Warm Assessment and Plan - Assessment and Plan (Free Text) Plan: Neck/Chest pain, 2/2 mediastinits -Neck and Chest CT demonstrated extensive infiltration changes seen within the mediastinal fat extending superiorly into supraclavicular subcutaneous tissues and subcutaneous tissues of the lower neck b/l; infiltration changes within anterior subcutaneous tissues of mid upper chest and b/l parasagittal upper chest more so on the R side; findings uncertain etiology, cannot exclude cellulitis, mediastinitis, atypical neoplastic process -CT head: neg for acute changes -ESR and CRP elevated - U/A - negative -Blood cultures -- no growth -Urine cultures --no growth -Throat culture and rapid strep test --no beta strep A isolated, negative -echo -- f/u official report -F/u lab work-up for inflammatory markers - WBC - 5.3 from 6.3 -Heme/onc (Dr. Garcia) consulted - suspect infectious etiology; empiric ABX -CT surgery Dr Hernandez consulted - recs appreciated -ID consult Dr Clements - keep on Vanco and clindamycin at this time - ENT Dr Purcell, consulted - recommend esophagogram to rule out perforation/trauma from past intubation during hernia repair procedure last month. - Critical care Dr Martinez, consulted - Pt medically stable to remain on floor, please re consult transportation superintendent if pt condition worsens - Anesthesiology consulted - Dr Bustos - Patient does not appear to have asymmetrical swelling of the neck, no tenderness to palpation of neck and shoulder. Oral/oralpharynx cavity normal appearance. At this time unclear of the etiology however patient is responding to antibiotics -Trop x1 neg -EKG unchanged from 04/05/18 per chart review -Morphine 1 mg q 6 h prn pain (Unsure if pt has reaction to toradol vs. IV contrast after [employer] yesterday for allergic reaction/hives on face) - Meds: - Vanco 1gm IVPB Q12 - Clindamycin 600mg IVPB Q8 - will follow up esophagogram results Dysphagia -Patient restarted on clear liquid diet -swallow eval/treat - recommended regular diet with thin liquids. FLACO -patient uses CPAP at rate 4.5 - We will not restart CPAP at this time PPX -clear liquid diet, ADAT -D5 1/2 NS @100 cc/hr -DVT ppx: Heparin 5000U q 8h Plan discussed with Dr Mehran Watson, PGY-1
--- NOTE | 2018-05-01 22:23 | CARD ---
APPROVED REPORT Date of service: 04/30/2018 EXAM: Two-dimensional and M-mode echocardiogram with Doppler and color Doppler. Other Information INDICATION Dyspnea Chest Pain 2D DIMENSIONS IVSd0.8 (0.7-1.1cm)Aortic Root (2D)3.0 (2.0-3.7cm) LVDd5.9 (3.9-5.9cm)PWd0.6 (0.7-1.1cm) LVDs4.5 (2.5-4.0cm)FS (%) 24.2 % LVEF (%)52.0 (>50%)IVC0.00 cm M-Mode DIMENSIONS Left Atrium (MM)4.41 (2.5-4.0cm)IVSd0.85 (0.7-1.1cm) Aortic Root3.28 (2.2-3.7cm)LVDd6.75 (4.0-5.6cm) Aortic Cusp Exc.2.23 (1.5-2.0cm)PWd1.25 (0.7-1.1cm) FS (%) 16 %LVDs5.66 (2.0-3.8cm) Mitral Valve MV E Aobfifox283.9cm/sMV A Nnfwlydz20.3cm/sE/A ratio1.2 TDI Lateral E' Peak V13.20cm/sMedial E' Peak V7.13cm/sE/Lateral E'8.7 E/Medial E'16.1 Tricuspid Valve TR Peak Cftgsloo370zr/sTR Peak Gr.[id number] LEFT VENTRICLE The left ventricle is normal size. There is normal left ventricular wall thickness. Left ventricle systolic function is normal. The Ejection Fraction is 50-55%. There is normal LV segmental wall motion. The left ventricular diastolic function is normal. RIGHT VENTRICLE The right ventricle is normal size. There is normal right ventricular wall thickness. The right ventricular systolic function is normal. ATRIA The left atrium is mildly dilated. The right atrium size is normal. The interatrial septum is intact with no evidence for an atrial septal defect. AORTIC VALVE The aortic valve is normal in structure. No aortic regurgitation is present. There is no aortic valvular stenosis. MITRAL VALVE The mitral valve is normal in structure. There is no evidence of mitral valve prolapse. There is no mitral valve stenosis. Mitral regurgitation is mild. TRICUSPID VALVE The tricuspid valve is normal in structure. There is mild tricuspid regurgitation. Right ventricular systolic pressure is estimated at 30-40 mmHg. There is mild pulmonary hypertension. PULMONIC VALVE The pulmonic valve is not well visualized. There is no pulmonic valvular regurgitation. GREAT VESSELS The aortic root is normal in size. PERICARDIAL EFFUSION There is no significant pericardial effusion. <Conclusion> Left ventricle systolic function is normal. The Ejection Fraction is 50-55%. No aortic regurgitation is present. Mitral regurgitation is mild. There is mild tricuspid regurgitation. There is mild pulmonary hypertension. There is no pulmonic valvular regurgitation.
--- NOTE | 2018-05-01 22:37 | CON ---
DATE: 05/01/2018 REASON FOR CONSULTATION: Possible throat laceration. HISTORY: This is a 42-year-old male who underwent surgery last week. During the surgery, the patient got a laceration in the soft palate. He presented to the ER with neck pain. The patient had CAT scan done, which shows large tonsils and possible fluid in the mediastinum; however, the patient did not complain of any throat pain. PAST MEDICAL HISTORY: As noted in the chart by me. MEDICATIONS: As noted in the chart by me. PHYSICAL EXAMINATION: HEENT: Head: Atraumatic and normocephalic. Face: Good facial movements bilaterally. External nose and ears: No masses. No lesions. No erythema. No edema. Internal nose: Deviated septum. No masses. No lesions. No erythema. No edema. Oral cavity and oropharynx: No masses. No lesions. No erythema. No edema. The new laceration that was there has healed. Lips and gums: No masses. No lesions. No erythema. No edema. CONSTITUTIONAL: Well fed, and well nourished. The patient communicates well and appropriately. NECK: Supple. Thyroid: No thyromegaly. No goiter. Lymph nodes: No lymphadenopathy of the neck. LABORATORY DATA: CAT scan was done which revealed large tonsils. ASSESSMENT: 1. Throat laceration, healed. 2. Throat laceration in the soft palate is unlikely to cause any kind of infection in the mediastinum, therefore, I would recommend esophagram to rule out an esophageal perforation. If the esophageal perforation does not exist, treatment of the possible mediastinitis is as per Pulmonary. Brandon Purcell MD
[2018-05-02] MEDS: Vancomycin 1 gm/NS 200 ml 1 GM/200 ML BAG IVPB SCH ×2 (04:02→17:50)
[2018-05-02] MEDS: Dextrose 5%/0.9% NS 1,000 ML IV SCH (04:05)
[2018-05-02 07:52] LABS: BASO % 0.8 % (0.0-2.0); EOS # 0.4 K/uL (0.0-0.7); HEMOGLOBIN 14.4 g/dL (12.0-18.0); LYMPH # 1.5 K/uL (1.0-4.3); LYMPH % 26.7 % (20.0-40.0); MEAN CELL VOLUME 95.9 fL (80.0-94.0); MEAN CORPUSCULAR HEMOGLOBIN 32.9 pg (27.0-31.0); MEAN CORPUSCULAR HGB CONC 34.3 g/dL (33.0-37.0); MEAN PLATELET VOLUME 9.4 fL (7.2-11.7); MONO # 0.4 K/uL (0.0-0.8); NEUT # 3.2 K/uL (1.8-7.0); NEUT % 57.5 % (50.0-75.0); RBC 4.37 Mil/uL (4.40-5.90); WHITE BLOOD COUNT 5.5 K/uL (4.8-10.8)
[2018-05-02 08:46] LABS: ALB/GLOB RATIO 1.2 (1.0-2.1); ALBUMIN 3.9 g/dL (3.5-5.0); ALT/SGPT 85 U/L (21-72); AST/SGOT 42 U/L (17-59); BLOOD UREA NITROGEN 5 mg/dL (9-20); CALCIUM 8.9 mg/dl (8.6-10.4); GFR NON-AFRICAN AMERICAN > 60
[2018-05-02] MEDS ORDERED: Albuterol HFA 90 mcg/actuation (8 g) INH PRN (12:14)
[2018-05-02] MEDS ORDERED: oxyCODONE 5 mg Immediate Release Tab PO PRN (12:18)
--- NOTE | 2018-05-02 12:21 | CP.PCM.PN ---
Subjective - Date & Time of Evaluation Date of Evaluation: 05/02/18 Time of Evaluation: 12:17 - Subjective Subjective: c/o neck pain. Esophagoram-No extraluminal extravagation of contrast material. Awating ENT and anesthesia consults. a/p: continue current care. Objective - Vital Signs/Intake and Output Vital Signs (last 24 hours): Temp Pulse Resp BP Pulse Ox 98.4 F 68 20 111/78 95 05/02/18 07:56 05/02/18 07:56 05/02/18 07:56 05/02/18 07:56 05/02/18 07:56 Intake and Output: 05/02/18 05/02/18 06:59 18:59 Intake Total 1900 Balance 1900 - Medications Medications: Current Medications Albuterol (Ventolin Hfa 90 Mcg/Actuation (8 G)) 1 puff INH RQ6 PRN PRN Reason: Wheezing Heparin Sodium (Porcine) (Heparin) 5,000 units SC Q8 EFREN Last Admin: 05/02/18 05:44 Dose: 5,000 units Clindamycin Phosphate 600 mg/ (Sodium Chloride) 54 mls @ 100 mls/hr IVPB Q8H EFREN; Protocol Last Admin: 05/02/18 07:47 Dose: 100 mls/hr Vancomycin/Sodium Chloride (Vancomycin 1 Gm/Ns 200 Ml) 1 gm in 200 mls @ 133 mls/hr IVPB Q12H EFREN; Protocol Stop: 05/06/18 05:01 Last Admin: 05/02/18 04:02 Dose: 133 mls/hr Morphine Sulfate (Morphine) 1 mg IVP Q6H PRN PRN Reason: Pain, moderate (4-7) Last Admin: 05/02/18 07:35 Dose: 1 mg Oxycodone HCl (Oxycodone Immediate Release Tab) 5 mg PO Q6 PRN PRN Reason: Pain, moderate (4-7) - Labs Labs: 05/02/18 07:44 05/02/18 07:44 PT 15.6 SECONDS (9.7-12.2) H 04/28/18 19:52 INR 1.4 04/28/18 19:52 APTT 32 SECONDS (21-34) 04/28/18 19:52
--- NOTE | 2018-05-02 21:09 | CP.PCM.PN ---
Subjective - Date & Time of Evaluation Date of Evaluation: 05/02/18 Time of Evaluation: 07:20 - Subjective Subjective: PGY-[address] Laurent service Patient is seen and examined at bedside. Patient complains of tension/pressure pain, 4/10, constant and states he feels as if neck area is getting swollen. Patient is requesting pain medication. Patient denies fever, chills, nausea, vomiting, shortness of breath, chest pain. Patient has one episode of watery, nonbloody diarrhea. Patient denies dysuria, abdominal pain. Patient is out of b ed and ambulating. Patient is tolerating clear liquid diet. Objective - Vital Signs/Intake and Output Vital Signs (last 24 hours): Temp Pulse Resp BP Pulse Ox 98.1 F 62 20 142/94 H 97 05/02/18 15:00 05/02/18 15:00 05/02/18 15:00 05/02/18 15:00 05/02/18 15:00 Intake and Output: 05/02/18 05/03/18 18:59 06:59 Intake Total 1300 Balance 1300 - Medications Medications: Current Medications Albuterol (Ventolin Hfa 90 Mcg/Actuation (8 G)) 1 puff INH RQ6 PRN PRN Reason: Wheezing Heparin Sodium (Porcine) (Heparin) 5,000 units SC Q8 EFREN Last Admin: 05/02/18 13:25 Dose: Not Given Clindamycin Phosphate 600 mg/ (Sodium Chloride) 54 mls @ 100 mls/hr IVPB Q8H EFREN; Protocol Last Admin: 05/02/18 16:58 Dose: 100 mls/hr Vancomycin/Sodium Chloride (Vancomycin 1 Gm/Ns 200 Ml) 1 gm in 200 mls @ 133 mls/hr IVPB Q12H EFREN; Protocol Stop: 05/06/18 05:01 Last Admin: 05/02/18 17:50 Dose: 133 mls/hr Morphine Sulfate (Morphine) 1 mg IVP Q6H PRN PRN Reason: Pain, moderate (4-7) Last Admin: 05/02/18 07:35 Dose: 1 mg Oxycodone HCl (Oxycodone Immediate Release Tab) 5 mg PO Q6 PRN PRN Reason: PAIN, SEVERE 8-10 - Labs Labs: 05/02/18 07:44 05/02/18 07:44 PT 15.6 SECONDS (9.7-12.2) H 04/28/18 19:52 INR 1.4 04/28/18 19:52 APTT 32 SECONDS (21-34) 04/28/18 19:52 - Constitutional Appears: Non-toxic, No Acute Distress - Head Exam Head Exam: ATRAUMATIC, NORMAL INSPECTION, NORMOCEPHALIC - Eye Exam Eye Exam: EOMI, Normal appearance - ENT Exam ENT Exam: Mucous Membranes Moist, Normal Exam - Neck Exam Neck Exam: Normal Inspection. absent: Lymphadenopathy, Tenderness, Thyromegaly Additional comments: improving swelling on right anterior triangle of neck, nontender to palpation. - Respiratory Exam Respiratory Exam: Wheezes, NORMAL BREATHING PATTERN. absent: Accessory Muscle Use, Respiratory Distress Additional comments: wheezing auscultated right and left lungs, mostly heard on lower lobes bilaterally. - Cardiovascular Exam Cardiovascular Exam: REGULAR RHYTHM, +S1, +S2 - GI/Abdominal Exam GI & Abdominal Exam: Soft, Normal Bowel Sounds. absent: Distended, Guarding, Tenderness - Extremities Exam Extremities Exam: Full ROM, Normal Inspection - Back Exam Back Exam: NORMAL INSPECTION - Neurological Exam Neurological Exam: Alert, Awake, Oriented x3 - Psychiatric Exam Psychiatric exam: Normal Affect, Normal Mood - Skin Skin Exam: Dry, Intact, Normal Color, Warm Assessment and Plan - Assessment and Plan (Free Text) Plan: Neck/Chest pain, 2/2 mediastinits -Neck and Chest CT demonstrated extensive infiltration changes seen within the mediastinal fat extending superiorly into supraclavicular subcutaneous tissues and subcutaneous tissues of the lower neck b/l; infiltration changes within anterior subcutaneous tissues of mid upper chest and b/l parasagittal upper chest more so on the R side; findings uncertain etiology, cannot exclude cellulitis, mediastinitis, atypical neoplastic process -CT head: neg for acute changes -ESR and CRP elevated - VASU - negative - U/A - negative -Blood cultures -- no growth -Urine cultures --no growth -Throat culture and rapid strep test --no beta strep A isolated, negative -echo -- LV systolic function normal, EF 50-55%, no aortic regurg present. -F/u lab work-up for inflammatory markers - WBC - 5.3 from 6.3 -Heme/onc (Dr. Garcia) consulted - suspect infectious etiology; empiric ABX -CT surgery Dr Hernandez consulted - continue current care -ID consult Dr Clements -follow up recs - ENT Dr Purcell, consulted - F/U Recs - Critical care Dr Martinez, consulted - Pt medically stable to remain on floor, please re consult manager fine dining if pt condition worsens - Anesthesiology consulted - Dr Bustos - Patient does not appear to have asymmetrical swelling of the neck, no tenderness to palpation of neck and shoulder. Oral/oralpharynx cavity normal appearance. At this time unclear of the etiology however patient is responding to antibiotics - Esophagogram shows no extraluminal extravagation of contrast material. no perforation. -Trop x1 neg -EKG unchanged from 04/05/18 per chart review -Morphine 1 mg q 6 h prn pain (Unsure if pt has reaction to toradol vs. 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 Wheezing on auscultation -Albuterol (Ventolin) 1 puff INH Q6 PRN -consider Chest xray if wheezing continues FLACO -patient uses CPAP at rate 4.5 - We will not restart CPAP at this time PPX -clear liquid diet -D5 1/2 NS @100 cc/hr -DVT ppx: Heparin 5000U q 8h pain management : Morphine 1mg IVP Q6hrs PRN for moderate pain 4-6, Oxycodone 5mg PO Q6 PRN for severe pain 7-[address] Mehran Watson, PGY-1
--- NOTE | 2018-05-02 23:49 | CP.PCM.PN ---
Subjective - Date & Time of Evaluation Date of Evaluation: 05/02/18 Time of Evaluation: 13:00 - Subjective Subjective: Has neck pain. Objective - Vital Signs/Intake and Output Vital Signs (last 24 hours): Temp Pulse Resp BP Pulse Ox 98 F 59 L 20 146/86 99 05/02/18 23:16 05/02/18 23:16 05/02/18 23:16 05/02/18 23:16 05/02/18 23:16 Intake and Output: 05/02/18 05/03/18 18:59 06:59 Intake Total 1300 650 Balance 1300 650 - Medications Medications: Current Medications Albuterol (Ventolin Hfa 90 Mcg/Actuation (8 G)) 1 puff INH RQ6 PRN PRN Reason: Wheezing Heparin Sodium (Porcine) (Heparin) 5,000 units SC Q8 EFREN Last Admin: 05/02/18 21:36 Dose: 5,000 units Clindamycin Phosphate 600 mg/ (Sodium Chloride) 54 mls @ 100 mls/hr IVPB Q8H EFREN; Protocol Last Admin: 05/02/18 16:58 Dose: 100 mls/hr Vancomycin/Sodium Chloride (Vancomycin 1 Gm/Ns 200 Ml) 1 gm in 200 mls @ 133 mls/hr IVPB Q12H EFREN; Protocol Stop: 05/06/18 05:01 Last Admin: 05/02/18 17:50 Dose: 133 mls/hr Morphine Sulfate (Morphine) 1 mg IVP Q6H PRN PRN Reason: Pain, moderate (4-7) Last Admin: 05/02/18 07:35 Dose: 1 mg Oxycodone HCl (Oxycodone Immediate Release Tab) 5 mg PO Q6 PRN PRN Reason: PAIN, SEVERE 8-10 - Labs Labs: 05/02/18 07:44 05/02/18 07:44 PT 15.6 SECONDS (9.7-12.2) H 04/28/18 19:52 INR 1.4 04/28/18 19:52 APTT 32 SECONDS (21-34) 04/28/18 19:52 - Head Exam Head Exam: ATRAUMATIC - Eye Exam Eye Exam: Normal appearance - ENT Exam ENT Exam: Mucous Membranes Dry - Respiratory Exam Respiratory Exam: NORMAL BREATHING PATTERN - Cardiovascular Exam Cardiovascular Exam: +S1, +S2 - GI/Abdominal Exam GI & Abdominal Exam: Normal Bowel Sounds Assessment and Plan (1) Mediastinal disease Assessment & Plan: suspect infectious etiology; empiric ABX CT surgery and ENT evaluation further evaluation and w/u based on above consultants evaluation Status: Acute
--- NOTE | 2018-05-03 04:03 | PN ---
DATE: 05/02/2018 SUBJECTIVE: The patient was seen today. He also had a esophagogram, which was unremarkable. He still complains of right side swelling and pain. He is obese and he has a short neck. However, it does seem that there is some swelling on the right side more than the left, but there is no induration, no cellulitis, no warmth, just appears swollen. CAT scan is abnormal of the chest and the neck. I have empirically started him on vancomycin and clindamycin and he has been on these medications. He is tolerating some clear liquid diet. He was also seen by Cardiothoracic surgeon as well, but not by ENT, I do not see a ENT's note. PHYSICAL EXAMINATION: GENERAL: He is awake and alert. He is able to ambulate. He denies shortness of breath, but he is concerned about the swelling. HEENT: Head is atraumatic. NECK: Supple. LUNGS: Clear. HEART: S1, S2 are regular. ABDOMEN: Soft, nontender. LABORATORY DATA: Labs appear unremarkable. White count is 5.5, , his hemoglobin is unremarkable, ESR was only 19, group B strep antigen was negative and VASU is negative. Chemistry shows BUN is 5, creatinine 0.7, ALT is 85, total 01:50 CK was 23. C-reactive protein is 12.20, procalcitonin level however is 0.05 which is not helpful. ASSESSMENT AND PLAN: So, at this time continue on the present treatment. If he continues to improve, let him complete a total dose of clindamycin for 10 days, counting the days here also and give him some Bacid along with that. If he continues to improve and he is able to tolerate diet and he feels the swelling is coming down, he can probably go home, but if it does not improve, we may need another CAT scan in few days to see what is going on. So, he does have swelling of the neck and etiology remains unclear. Emre Clements MD
[2018-05-03] MEDS: Vancomycin 1 gm/NS 200 ml 1 GM/200 ML BAG IVPB SCH ×2 (05:33→17:28)
[2018-05-03 07:43] LABS: BASO % 0.9 % (0.0-2.0); EOS # 0.4 K/uL (0.0-0.7); EOS % 7.9 % (0.0-4.0); HEMOGLOBIN 14.4 g/dL (12.0-18.0); LYMPH # 1.7 K/uL (1.0-4.3); LYMPH % 29.8 % (20.0-40.0); MEAN CELL VOLUME 95.3 fL (80.0-94.0); MEAN CORPUSCULAR HEMOGLOBIN 33.1 pg (27.0-31.0); MEAN CORPUSCULAR HGB CONC 34.7 g/dL (33.0-37.0); MEAN PLATELET VOLUME 9.6 fL (7.2-11.7); MONO # 0.4 K/uL (0.0-0.8); MONO % 7.8 % (0.0-10.0); NEUT % 53.6 % (50.0-75.0); RBC 4.35 Mil/uL (4.40-5.90); RED CELL DISTRIBUTION WIDTH 12.9 % (11.5-14.5); WHITE BLOOD COUNT 5.5 K/uL (4.8-10.8)
[2018-05-03 09:01] LABS: ALB/GLOB RATIO 1.3 (1.0-2.1); ALBUMIN 4.1 g/dL (3.5-5.0); ALT/SGPT 91 U/L (21-72); AST/SGOT 53 U/L (17-59); BLOOD UREA NITROGEN 5 mg/dL (9-20); CALCIUM 9.1 mg/dl (8.6-10.4); GFR NON-AFRICAN AMERICAN > 60
--- NOTE | 2018-05-03 09:27 | CP.PCM.PN ---
Subjective - Date & Time of Evaluation Date of Evaluation: 05/03/18 Time of Evaluation: 07:00 - Subjective Subjective: Cardiothoracic progress note for Dr. Romero Patient seen and examined at bedside. States his pain and swelling are improved today, denies any problems breathing after a breathing treatment overnight. Patient denies any fever or chills. Is tolerating CLD Objective - Vital Signs/Intake and Output Vital Signs (last 24 hours): Temp Pulse Resp BP Pulse Ox 98.1 F 58 L 20 124/81 98 05/03/18 07:57 05/03/18 07:57 05/03/18 07:57 05/03/18 07:57 05/03/18 07:57 Intake and Output: 05/03/18 05/03/18 06:59 18:59 Intake Total 650 Balance 650 - Medications Medications: Current Medications Albuterol (Ventolin Hfa 90 Mcg/Actuation (8 G)) 1 puff INH RQ6 PRN PRN Reason: Wheezing Last Admin: 05/03/18 03:20 Dose: 1 puff Heparin Sodium (Porcine) (Heparin) 5,000 units SC Q8 EFREN Last Admin: 05/03/18 05:34 Dose: Not Given Clindamycin Phosphate 600 mg/ (Sodium Chloride) 54 mls @ 100 mls/hr IVPB Q8H EFREN; Protocol Last Admin: 05/03/18 08:12 Dose: 100 mls/hr Vancomycin/Sodium Chloride (Vancomycin 1 Gm/Ns 200 Ml) 1 gm in 200 mls @ 133 mls/hr IVPB Q12H EFREN; Protocol Stop: 05/06/18 05:01 Last Admin: 05/03/18 05:33 Dose: 133 mls/hr Morphine Sulfate (Morphine) 1 mg IVP Q6H PRN PRN Reason: Pain, moderate (4-7) Last Admin: 05/02/18 07:35 Dose: 1 mg Oxycodone HCl (Oxycodone Immediate Release Tab) 5 mg PO Q6 PRN PRN Reason: PAIN, SEVERE 8-10 - Labs Labs: 05/03/18 07:35 05/03/18 07:35 PT 15.6 SECONDS (9.7-12.2) H 04/28/18 19:52 INR 1.4 04/28/18 19:52 APTT 32 SECONDS (21-34) 04/28/18 19:52 - Constitutional Appears: Well, Non-toxic, No Acute Distress - Head Exam Head Exam: ATRAUMATIC, NORMOCEPHALIC - Eye Exam Eye Exam: Normal appearance. absent: Conjunctival injection, Scleral icterus - ENT Exam ENT Exam: Mucous Membranes Moist, Normal Oropharynx - Neck Exam Additional comments: swelling of right neck improved - Respiratory Exam Respiratory Exam: NORMAL BREATHING PATTERN. absent: Accessory Muscle Use, Respiratory Distress Additional comments: swelling in the anterior chest improved--no tenderness or crepitus to palpation - Cardiovascular Exam Cardiovascular Exam: RRR - GI/Abdominal Exam GI & Abdominal Exam: Soft. absent: Distended - Neurological Exam Neurological Exam: Alert, Awake, Oriented x3 - Psychiatric Exam Psychiatric exam: Normal Affect, Normal Mood - Skin Skin Exam: Dry, Normal Color, Warm Assessment and Plan - Assessment and Plan (Free Text) Assessment: 42m with mediasinitis of unknown etiology, clinically improving Plan: Continue ABX per ID Continue to F/U ID, ENT, and heme/onc recs Recommending advance diet as tolerated but defer to ENT/primary recs No indication for intervention at this time, please re-contact surgery team for further questions or concerns Discussed with Dr. Nick Hale, PGY2
--- NOTE | 2018-05-03 15:02 | CP.PCM.PN ---
Subjective - Date & Time of Evaluation Date of Evaluation: 05/03/18 Time of Evaluation: 08:00 - Subjective Subjective: PGY-[address] Laurent. Patient seen and examined at bedside. Patient is sitting in bed comfortably this AM. Admits that the neck pain and swelling have subsided since admission. Pt is on clear liquid diet and is tolerating well. Pt will like to start with a solid diet. Pt denies fevers, chills, neck/shoulder pain, dysphagia, and chest pressure. All vital signs stable. Objective - Vital Signs/Intake and Output Vital Signs (last 24 hours): Temp Pulse Resp BP Pulse Ox 98.1 F 58 L 20 124/81 98 05/03/18 07:57 05/03/18 07:57 05/03/18 07:57 05/03/18 07:57 05/03/18 07:57 Intake and Output: 05/03/18 05/03/18 06:59 18:59 Intake Total 650 Balance 650 - Medications Medications: Current Medications Albuterol (Ventolin Hfa 90 Mcg/Actuation (8 G)) 1 puff INH RQ6 PRN PRN Reason: Wheezing Last Admin: 05/03/18 03:20 Dose: 1 puff Heparin Sodium (Porcine) (Heparin) 5,000 units SC Q8 EFREN Last Admin: 05/03/18 13:38 Dose: 5,000 units Clindamycin Phosphate 600 mg/ (Sodium Chloride) 54 mls @ 100 mls/hr IVPB Q8H EFREN; Protocol Last Admin: 05/03/18 08:12 Dose: 100 mls/hr Vancomycin/Sodium Chloride (Vancomycin 1 Gm/Ns 200 Ml) 1 gm in 200 mls @ 133 mls/hr IVPB Q12H EFREN; Protocol Stop: 05/06/18 05:01 Last Admin: 05/03/18 05:33 Dose: 133 mls/hr Morphine Sulfate (Morphine) 1 mg IVP Q6H PRN PRN Reason: Pain, moderate (4-7) Last Admin: 05/02/18 07:35 Dose: 1 mg Oxycodone HCl (Oxycodone Immediate Release Tab) 5 mg PO Q6 PRN PRN Reason: PAIN, SEVERE 8-10 - Labs Labs: 05/03/18 07:35 05/03/18 07:35 PT 15.6 SECONDS (9.7-12.2) H 04/28/18 19:52 INR 1.4 04/28/18 19:52 APTT 32 SECONDS (21-34) 04/28/18 19:52 - Constitutional Appears: Non-toxic, No Acute Distress - Head Exam Head Exam: ATRAUMATIC, NORMOCEPHALIC - Eye Exam Eye Exam: EOMI - ENT Exam ENT Exam: Mucous Membranes Moist - Neck Exam Neck Exam: Full ROM. absent: Tenderness Additional comments: Minimal swelling to R anterior neck (improved from previous) - Respiratory Exam Respiratory Exam: Clear to Ausculation Bilateral, NORMAL BREATHING PATTERN. absent: Rales, Rhonchi, Wheezes - Cardiovascular Exam Cardiovascular Exam: REGULAR RHYTHM, +S1, +S2 - GI/Abdominal Exam GI & Abdominal Exam: Soft, Normal Bowel Sounds. absent: Guarding, Tenderness, Rebound Additional comments: well healing laparoscopic surgical incisions. - Extremities Exam Extremities Exam: Full ROM, Normal Inspection. absent: Pedal Edema, Tenderness - Neurological Exam Neurological Exam: Alert, Awake, Oriented x3 - Psychiatric Exam Psychiatric exam: Normal Affect, Normal Mood - Skin Skin Exam: Dry, Intact, Normal Color, Warm Assessment and Plan - Assessment and Plan (Free Text) Plan: Patient is a 42 year old male with no PMhx who was admitted for right sided neck pain and swelling. Neck/Chest pain, 2/2 mediastinits -Neck and Chest CT demonstrated extensive infiltration changes seen within the mediastinal fat extending superiorly into supraclavicular subcutaneous tissues and subcutaneous tissues of the lower neck b/l; infiltration changes within anterior subcutaneous tissues of mid upper chest and b/l parasagittal upper chest more so on the R side; findings uncertain etiology, cannot exclude cellulitis, mediastinitis, atypical neoplastic process -CT head: neg for acute changes -ESR and CRP elevated - VASU - negative - U/A - negative -Blood cultures -- no growth -Urine cultures --no growth -Throat culture and rapid strep test --no beta strep A isolated, negative -echo -- LV systolic function normal, EF 50-55%, no aortic regurg present. -F/u lab work-up for inflammatory markers -Heme/onc (Dr. Garcia) consulted - suspect infectious etiology; empiric ABX -CT surgery Dr Hernandez consulted - continue current care -ID consult Dr Clements -follow up recs - ENT Dr Purcell, consulted - F/U Recs - May advance diet - Critical care Dr Martinez, consulted - Pt medically stable to remain on floor, please re consult manifest/order organizer print orders if pt condition worsens - Anesthesiology consulted - Dr Bustos - Patient does not appear to have asymmetr ical swelling of the neck, no tenderness to palpation of neck and shoulder. Oral/oralpharynx cavity normal appearance. At this time unclear of the etiology however patient is responding to antibiotics - Esophagogram shows no extraluminal extravagation of contrast material. no perforation. -Trop x1 neg -EKG unchanged from 04/05/18 per chart review -Morphine 1 mg q 6 h prn pain (Unsure if pt has reaction to toradol vs. 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 Wheezing on auscultation -Albuterol (Ventolin) 1 puff INH Q6 PRN -consider Chest xray if wheezing continues FLACO -patient uses CPAP at rate 4.5 - We will not restart CPAP at this time PPX -clear liquid diet -DVT ppx: Heparin 5000U q 8h pain management : Morphine 1mg IVP Q6hrs PRN for moderate pain 4-6, Oxycodone 5mg PO Q6 PRN for severe pain 7-10
--- NOTE | 2018-05-03 22:35 | CP.PCM.PN ---
Subjective - Date & Time of Evaluation Date of Evaluation: 05/03/18 Time of Evaluation: 14:00 - Subjective Subjective: dictated Objective - Vital Signs/Intake and Output Vital Signs (last 24 hours): Temp Pulse Resp BP Pulse Ox 98.1 F 59 L 20 131/80 97 05/03/18 15:55 05/03/18 16:15 05/03/18 15:55 05/03/18 15:55 05/03/18 15:55 Intake and Output: 05/03/18 05/04/18 18:59 06:59 Intake Total 800 Balance 800 - Medications Medications: Current Medications Albuterol (Ventolin Hfa 90 Mcg/Actuation (8 G)) 1 puff INH RQ6 PRN PRN Reason: Wheezing Last Admin: 05/03/18 03:20 Dose: 1 puff Heparin Sodium (Porcine) (Heparin) 5,000 units SC Q8 EFREN Last Admin: 05/03/18 21:51 Dose: Not Given Clindamycin Phosphate 600 mg/ (Sodium Chloride) 54 mls @ 100 mls/hr IVPB Q8H EFREN; Protocol Last Admin: 05/03/18 16:25 Dose: 100 mls/hr Vancomycin/Sodium Chloride (Vancomycin 1 Gm/Ns 200 Ml) 1 gm in 200 mls @ 133 mls/hr IVPB Q12H EFREN; Protocol Stop: 05/06/18 05:01 Last Admin: 05/03/18 17:28 Dose: 133 mls/hr Morphine Sulfate (Morphine) 1 mg IVP Q6H PRN PRN Reason: Pain, moderate (4-7) Last Admin: 05/02/18 07:35 Dose: 1 mg Oxycodone HCl (Oxycodone Immediate Release Tab) 5 mg PO Q6 PRN PRN Reason: PAIN, SEVERE 8-10 - Labs Labs: 05/03/18 07:35 05/03/18 07:35 PT 15.6 SECONDS (9.7-12.2) H 04/28/18 19:52 INR 1.4 04/28/18 19:52 APTT 32 SECONDS (21-34) 04/28/18 19:52
--- NOTE | 2018-05-04 01:42 | PN ---
DATE: 05/03/2018 SUBJECTIVE: Cj Davis is a 42-year-old, he is feeling a little better. His pain and swelling is better. He is able to eat now. Denies any fever or chills. His right neck contour and face contour is back now, slightly better. PHYSICAL EXAMINATION: VITAL SIGNS: T-max is 98.1, pulse 65, blood pressure 131/80, respirations are 20. HEENT: Head is atraumatic, normocephalic. NECK: Supple. LUNGS: Clear. HEART: S1, S2 are regular. ABDOMEN: Soft, nontender. No guarding, no rigidity present. I heard that they are going to do another CAT scan tomorrow, I do not know if it is for this patient or the other loreta. So, at this time, he is on vancomycin and clindamycin, which I will continue. He has been getting these antibiotics since I saw him on 04/30/2018, so its fourth day of the antibiotics. We will continue and we will follow. He remains afebrile. IMPRESSION: He has this mediastinitis of unknown etiology with neck swelling. PLAN: To continue with the IV antibiotics and to monitor him. We will follow. Emre Clements MD
[2018-05-04] MEDS: Vancomycin 1 gm/NS 200 ml 1 GM/200 ML BAG IVPB SCH ×2 (06:00→17:37)
[2018-05-04 07:46] LABS: BASO % 0.6 % (0.0-2.0); EOS # 0.5 K/uL (0.0-0.7); EOS % 7.8 % (0.0-4.0); HEMOGLOBIN 14.6 g/dL (12.0-18.0); LYMPH # 1.5 K/uL (1.0-4.3); LYMPH % 25.3 % (20.0-40.0); MEAN CORPUSCULAR HEMOGLOBIN 33.4 pg (27.0-31.0); MEAN CORPUSCULAR HGB CONC 34.8 g/dL (33.0-37.0); MEAN PLATELET VOLUME 9.9 fL (7.2-11.7); MONO # 0.5 K/uL (0.0-0.8); MONO % 7.9 % (0.0-10.0); NEUT # 3.5 K/uL (1.8-7.0); NEUT % 58.4 % (50.0-75.0); NRBC % 0.1 % (0.0-2.0); RBC 4.39 Mil/uL (4.40-5.90); RED CELL DISTRIBUTION WIDTH 12.9 % (11.5-14.5)
[2018-05-04 07:58] LABS: ALB/GLOB RATIO 1.2 (1.0-2.1); ALBUMIN 4.1 g/dL (3.5-5.0); ALT/SGPT 84 U/L (21-72); AST/SGOT 52 U/L (17-59); BLOOD UREA NITROGEN 8 mg/dL (9-20); CALCIUM 9.2 mg/dl (8.6-10.4); GFR NON-AFRICAN AMERICAN > 60
--- NOTE | 2018-05-04 10:55 | CT ---
Date of service: 05/04/2018 PROCEDURE: CT Chest without contrast. HISTORY: F/U NECK SWELLING / ? CELLULITIS COMPARISON: Comparison made with prior CT scan of the chest dated 04/28/2018. TECHNIQUE: Contiguous axial images were obtained through the chest without intravenous contrast enhancement. Sagittal and coronal reconstructions were performed. Radiation dose (DLP): 823.8 mGy-cm. This CT exam was performed using one or more of the following dose reduction techniques: Automated exposure control, adjustment of the mA and/or kV according to patient size, and/or use of iterative reconstruction technique. FINDINGS: LUNGS: Mild bibasilar atelectasis right greater than left. The minor atelectasis and/or scarring changes in the lingular and middle lobe regions as well.. Central pulmonary vasculature appears slightly increased MEDIASTINUM: Previously noted significant infiltration changes were present mediastinal fat improved.. Previously noted this subcutaneous localized infiltration changes in the anterior upper chest and base of neck improved. No evidence of subcutaneous emphysema the Heart appears mildly enlarged.. No significant pericardial effusion. No evidence of aneurysm. Main pulmonary trunk does not appear significantly dilated. No significant mediastinal adenopathy PLEURA: Small bilateral effusions right larger than left nonspecific. BONES: Multilevel degenerative spondylosis. No evidence of acute compression fractures no retropulsed fragments. Osseous structures appear grossly intact. UPPER ABDOMEN: Metallic cholecystectomy clips again noted. OTHER FINDINGS: None. IMPRESSION: There are small bilateral effusions right larger than left. Mild bibasilar atelectasis right greater than left. There also some minor atelectatic and or scarring changes seen in the middle lobe and lingular regions Central pulmonary vasculature appears slightly increased Previously noted significant nonspecific infiltration changes that were seen diffusely within the mediastinal fat and anterior subcutaneous tissues anterior upper thorax and extending into the Neck markedly improved. No evidence of subcutaneous emphysema.
--- NOTE | 2018-05-04 12:30 | CT ---
Date of service: 05/04/2018 PROCEDURE: CT NECK WITHOUT CONTRAST HISTORY: SWELLING F/U COMPARISON: Comparison made with CT scan neck 04/28/2018 TECHNIQUE: CT of the neck without intravenous contrast. Coronal and sagittal reformats generated. Radiation dose: DLP 517.92 mGy-cm This CT exam was performed using one or more of the following dose reduction techniques: Automated exposure control, adjustment of the mA and/or kV according to patient size, and/or use of iterative reconstruction technique. FINDINGS: NASOPHARYNX: Unremarkable. SUPRAHYOID NECK: Unremarkable oropharynx, oral cavity, parapharyngeal space and retropharyngeal space. INFRAHYOID NECK: Unremarkable larynx, hypopharynx, and supraglottic space. Vocal cords intact. MASS: There is a small elliptical shaped soft tissue density along the upper trachea just above the level of thoracic inlet of uncertain etiology. Followup CT scan with contrast a 2-3 month interval could be performed to assess stability or resolution of this tiny density GLANDS: Parotid and submandibular glands unremarkable. Normal size thyroid gland, without nodule. LYMPH NODES: No significant cervical adenopathy. CERVICAL SPINE: No fracture or focal lesion. OTHER FINDINGS: Previously noted significant nonspecific infiltration changes within subcutaneous tissues of the supraclavicular supraclavicular region anterior upper chest wall extending into the lower neck bilaterally markedly improved. There are no fluid collections seen within the subcutaneous tissues. No evidence of subcutaneous emphysema. Small bilateral effusions and minor atelectatic changes are present; please refer to concurrent CT scan of the chest and corresponding report for additional details and findings IMPRESSION: Interval improvement previously noted significant nonspecific infiltration changes within the subcutaneous tissues of the neck bilaterally which extended into the supraclavicular soft tissues and mediastinum. There is a small elliptical shaped soft tissue density along the left lateral surface of the upper trachea just above the level of the thoracic inlet of uncertain etiology.. This could represent some post inflammatory and/or granulation tissue. Follow-up CT scan at 2-3 month interval could performed to assess resolution. Small bilateral effusions.
--- NOTE | 2018-05-04 12:31 | CP.PCM.PN ---
Subjective - Date & Time of Evaluation Date of Evaluation: 05/04/18 Time of Evaluation: 12:21 - Subjective Subjective: Pt s/e. No pain anymore. ct of neck and chest: previously noted a massive infiltrative soft tissue changes -markedly improved/ No more neck swelling. a/p : Satisfactory recovery. Signing off for now. Reconsult prn. Objective - Vital Signs/Intake and Output Vital Signs (last 24 hours): Temp Pulse Resp BP Pulse Ox 98.3 F 60 20 113/81 95 05/04/18 07:00 05/04/18 07:00 05/04/18 07:00 05/04/18 07:00 05/04/18 07:00 Intake and Output: 05/04/18 05/04/18 06:59 18:59 Intake Total 450 Balance 450 - Medications Medications: Current Medications Albuterol (Ventolin Hfa 90 Mcg/Actuation (8 G)) 1 puff INH RQ6 PRN PRN Reason: Wheezing Last Admin: 05/03/18 03:20 Dose: 1 puff Heparin Sodium (Porcine) (Heparin) 5,000 units SC Q8 EFREN Last Admin: 05/04/18 06:12 Dose: 5,000 units Clindamycin Phosphate 600 mg/ (Sodium Chloride) 54 mls @ 100 mls/hr IVPB Q8H EFREN; Protocol Last Admin: 05/04/18 08:00 Dose: 100 mls/hr Vancomycin/Sodium Chloride (Vancomycin 1 Gm/Ns 200 Ml) 1 gm in 200 mls @ 133 mls/hr IVPB Q12H EFREN; Protocol Stop: 05/06/18 05:01 Last Admin: 05/04/18 06:00 Dose: 133 mls/hr Morphine Sulfate (Morphine) 1 mg IVP Q6H PRN PRN Reason: Pain, moderate (4-7) Last Admin: 05/02/18 07:35 Dose: 1 mg Oxycodone HCl (Oxycodone Immediate Release Tab) 5 mg PO Q6 PRN PRN Reason: PAIN, SEVERE 8-10 - Labs Labs: 05/04/18 07:20 05/04/18 07:20 PT 15.6 SECONDS (9.7-12.2) H 04/28/18 19:52 INR 1.4 04/28/18 19:52 APTT 32 SECONDS (21-34) 04/28/18 19:52
--- NOTE | 2018-05-04 12:48 | CP.PCM.PN ---
Subjective - Date & Time of Evaluation Date of Evaluation: 05/04/18 Time of Evaluation: 11:00 - Subjective Subjective: Feeling better. Objective - Vital Signs/Intake and Output Vital Signs (last 24 hours): Temp Pulse Resp BP Pulse Ox 98.3 F 60 20 113/81 95 05/04/18 07:00 05/04/18 07:00 05/04/18 07:00 05/04/18 07:00 05/04/18 07:00 Intake and Output: 05/04/18 05/04/18 06:59 18:59 Intake Total 450 Balance 450 - Medications Medications: Current Medications Albuterol (Ventolin Hfa 90 Mcg/Actuation (8 G)) 1 puff INH RQ6 PRN PRN Reason: Wheezing Last Admin: 05/03/18 03:20 Dose: 1 puff Heparin Sodium (Porcine) (Heparin) 5,000 units SC Q8 EFREN Last Admin: 05/04/18 06:12 Dose: 5,000 units Clindamycin Phosphate 600 mg/ (Sodium Chloride) 54 mls @ 100 mls/hr IVPB Q8H EFREN; Protocol Last Admin: 05/04/18 08:00 Dose: 100 mls/hr Vancomycin/Sodium Chloride (Vancomycin 1 Gm/Ns 200 Ml) 1 gm in 200 mls @ 133 mls/hr IVPB Q12H EFREN; Protocol Stop: 05/06/18 05:01 Last Admin: 05/04/18 06:00 Dose: 133 mls/hr Morphine Sulfate (Morphine) 1 mg IVP Q6H PRN PRN Reason: Pain, moderate (4-7) Last Admin: 05/02/18 07:35 Dose: 1 mg Oxycodone HCl (Oxycodone Immediate Release Tab) 5 mg PO Q6 PRN PRN Reason: PAIN, SEVERE 8-10 - Labs Labs: 05/04/18 07:20 05/04/18 07:20 PT 15.6 SECONDS (9.7-12.2) H 04/28/18 19:52 INR 1.4 04/28/18 19:52 APTT 32 SECONDS (21-34) 04/28/18 19:52 - Head Exam Head Exam: ATRAUMATIC - Eye Exam Eye Exam: Normal appearance - ENT Exam ENT Exam: Mucous Membranes Dry - Respiratory Exam Respiratory Exam: NORMAL BREATHING PATTERN - Cardiovascular Exam Cardiovascular Exam: +S1, +S2 - GI/Abdominal Exam GI & Abdominal Exam: Normal Bowel Sounds Assessment and Plan (1) Mediastinal disease Assessment & Plan: improving with antibiotics likely infection related outpatient repeat imaging to document resolution Status: Acute
--- NOTE | 2018-05-04 17:36 | CP.PCM.PN ---
Subjective - Date & Time of Evaluation Date of Evaluation: 05/04/18 Time of Evaluation: 14:00 - Subjective Subjective: dictated Objective - Vital Signs/Intake and Output Vital Signs (last 24 hours): Temp Pulse Resp BP Pulse Ox 98.0 F 56 L 20 132/91 H 98 05/04/18 15:00 05/04/18 15:00 05/04/18 15:00 05/04/18 15:00 05/04/18 15:00 Intake and Output: 05/04/18 05/04/18 06:59 18:59 Intake Total 1550 Balance 1550 - Medications Medications: Current Medications Albuterol (Ventolin Hfa 90 Mcg/Actuation (8 G)) 1 puff INH RQ6 PRN PRN Reason: Wheezing Last Admin: 05/03/18 03:20 Dose: 1 puff Heparin Sodium (Porcine) (Heparin) 5,000 units SC Q8 EFREN Last Admin: 05/04/18 13:59 Dose: 5,000 units Clindamycin Phosphate 600 mg/ (Sodium Chloride) 54 mls @ 100 mls/hr IVPB Q8H EFREN; Protocol Last Admin: 05/04/18 16:23 Dose: 100 mls/hr Vancomycin/Sodium Chloride (Vancomycin 1 Gm/Ns 200 Ml) 1 gm in 200 mls @ 133 mls/hr IVPB Q12H EFREN; Protocol Stop: 05/06/18 05:01 Last Admin: 05/04/18 06:00 Dose: 133 mls/hr Morphine Sulfate (Morphine) 1 mg IVP Q6H PRN PRN Reason: Pain, moderate (4-7) Last Admin: 05/02/18 07:35 Dose: 1 mg Oxycodone HCl (Oxycodone Immediate Release Tab) 5 mg PO Q6 PRN PRN Reason: PAIN, SEVERE 8-10 - Labs Labs: 05/04/18 07:20 05/04/18 07:20 PT 15.6 SECONDS (9.7-12.2) H 04/28/18 19:52 INR 1.4 04/28/18 19:52 APTT 32 SECONDS (21-34) 04/28/18 19:52
--- NOTE | 2018-05-04 19:44 | CP.PCM.PN ---
Subjective - Date & Time of Evaluation Date of Evaluation: 05/04/18 Time of Evaluation: 07:30 - Subjective Subjective: PGY-[address] Laurent Patient is seen and examined at bedside. Patient reports his pain has improved and feeling better. Patient states will feel the pain at times but not as frequent as it was in the past. Patient says his oxygen saturation goes down at night to 93%. Patient denies fevers, chills, chest pain, shortness of breath, nausea, vomiting, diarrhea, constipation, or dysuria. Patient is ambulating and tolerating regular diet. Objective - Vital Signs/Intake and Output Vital Signs (last 24 hours): Temp Pulse Resp BP Pulse Ox 98.0 F 56 L 20 132/91 H 98 05/04/18 15:00 05/04/18 15:00 05/04/18 15:00 05/04/18 15:00 05/04/18 15:00 Intake and Output: 05/04/18 05/05/18 18:59 06:59 Intake Total 1550 Balance 1550 - Medications Medications: Current Medications Albuterol (Ventolin Hfa 90 Mcg/Actuation (8 G)) 1 puff INH RQ6 PRN PRN Reason: Wheezing Last Admin: 05/03/18 03:20 Dose: 1 puff Heparin Sodium (Porcine) (Heparin) 5,000 units SC Q8 EFREN Last Admin: 05/04/18 13:59 Dose: 5,000 units Clindamycin Phosphate 600 mg/ (Sodium Chloride) 54 mls @ 100 mls/hr IVPB Q8H EFREN; Protocol Last Admin: 05/04/18 16:23 Dose: 100 mls/hr Vancomycin/Sodium Chloride (Vancomycin 1 Gm/Ns 200 Ml) 1 gm in 200 mls @ 133 mls/hr IVPB Q12H EFREN; Protocol Stop: 05/06/18 05:01 Last Admin: 05/04/18 17:37 Dose: 133 mls/hr Morphine Sulfate (Morphine) 1 mg IVP Q6H PRN PRN Reason: Pain, moderate (4-7) Last Admin: 05/02/18 07:35 Dose: 1 mg Oxycodone HCl (Oxycodone Immediate Release Tab) 5 mg PO Q6 PRN PRN Reason: PAIN, SEVERE 8-10 - Labs Labs: 05/04/18 07:20 05/04/18 07:20 PT 15.6 SECONDS (9.7-12.2) H 04/28/18 19:52 INR 1.4 04/28/18 19:52 APTT 32 SECONDS (21-34) 04/28/18 19:52 - Constitutional Appears: Well, Non-toxic, No Acute Distress - Head Exam Head Exam: ATRAUMATIC, NORMAL INSPECTION, NORMOCEPHALIC - Eye Exam Eye Exam: EOMI, Normal appearance - ENT Exam ENT Exam: Mucous Membranes Moist, Normal Exam - Neck Exam Neck Exam: Full ROM, Normal Inspection. absent: Lymphadenopathy, Tenderness - Respiratory Exam Respiratory Exam: Clear to Ausculation Bilateral, NORMAL BREATHING PATTERN. absent: Rales, Rhonchi, Wheezes - Cardiovascular Exam Cardiovascular Exam: REGULAR RHYTHM, +S1, +S2 - GI/Abdominal Exam GI & Abdominal Exam: Soft, Normal Bowel Sounds. absent: Distended, Guarding, Tenderness - Extremities Exam Extremities Exam: Full ROM, Normal Inspection. absent: Tenderness - Back Exam Back Exam: Full ROM, NORMAL INSPECTION - Neurological Exam Neurological Exam: Alert, Awake, Oriented x3 - Psychiatric Exam Psychiatric exam: Normal Affect, Normal Mood - Skin Skin Exam: Dry, Intact, Normal Color, Warm Assessment and Plan - Assessment and Plan (Free Text) Plan: Neck/Chest pain, 2/2 mediastinits -Neck and Chest CT demonstrated extensive infiltration changes seen within the mediastinal fat extending superiorly into supraclavicular subcutaneous tissues and subcutaneous tissues of the lower neck b/l; infiltration changes within anterior subcutaneous tissues of mid upper chest and b/l parasagittal upper chest more so on the R side; findings uncertain etiology, cannot exclude cellulitis, mediastinitis, atypical neoplastic process -CT head: neg for acute changes -ESR and CRP elevated - VASU - negative - U/A - negative -Blood cultures -- no growth -Urine cultures --no growth -Throat culture and rapid strep test --no beta strep A isolated, negative -echo -- LV systolic function normal, EF 50-55%, no aortic regurg present. -F/u lab work-up for inflammatory markers -Heme/onc (Dr. Garcia) consulted - suspect infectious etiology; empiric ABX -CT surgery Dr Hernandez consulted - continue current care -ID consult Dr Clements -follow up recs - ENT Dr Purcell, consulted - F/U Recs - May advance diet - Critical care Dr Martinez, consulted - Pt medically stable to remain on floor, please re consult rehab department manager if pt condition worsens - Anesthesiology consulted - Dr Bustos - Patient does not appear to have asymmetrical swelling of the neck, no tenderness to palpation of neck and shoulder. Oral/oralpharynx cavity normal appearance. At this time unclear of the etiology however patient is responding to antibiotics - Esophagogram shows no extraluminal extravagation of contrast material. no perforation. -Trop x1 neg -EKG unchanged from 04/05/18 per chart review -Morphine 1 mg q 6 h prn pain (Unsure if pt has reaction to toradol vs. IV contrast after STATE APPELLATE CLERK yesterday for allergic reaction/hives on face) - Meds: - cont Vanco 1gm IVPB Q12, started 05/01 - cont Clindamycin 600mg IVPB Q8 started 05/01 - afebrile, stable, follow up am lab Dysphagia -continue regular diet -swallow eval/treat - recommended regular diet with thin liquids. Wheezing on auscultation -Albuterol (Ventolin) 1 puff INH Q6 PRN -consider Chest xray if wheezing continues FLACO -patient uses CPAP at rate 4.5 - Start patient on CPAP - morning O2 sat at 95% PPX -regular diet -DVT ppx: Heparin 5000U q 8h pain management : Morphine 1mg IVP Q6hrs PRN for moderate pain 4-6, Oxycodone 5mg PO Q6 PRN for severe pain 7-[address] Mehran Watson
--- NOTE | 2018-05-04 23:16 | PN ---
DATE: 05/04/2018 SUBJECTIVE: The patient states he has no trouble eating. His swelling is decreasing, CAT also says that, and he was told. He is feeling better. He has no fever. The swelling has gone. His face is with normal contour. He continues to be on IV antibiotics that I started. He was seen by Dr. Garcia also. PHYSICAL EXAMINATION: VITAL SIGNS: Stable. LUNGS: Clear. HEART: S1 and S2 are regular. ABDOMEN: Soft, nontender. No guarding. No rigidity present. EXTREMITIES: Have no edema. LABORATORY DATA: His eosinophil count is 7.8. May do stool studies and send stool for ova and parasites to see if anything in that. Otherwise, we will continue Clindamycin as he has improved on it and change to oral 300 three times daily for another five days from tomorrow and probably he can go home; ova and parasites in stool just to see because he has eosinophilia. To discontinue Vancomycin if discharged home. Also look into to see what Dr. Hernandez has assessed. He should follow up CAT scan in two to three months. Emre Clements MD
[2018-05-05] MEDS: Vancomycin 1 gm/NS 200 ml 1 GM/200 ML BAG IVPB SCH (06:05)
[2018-05-05 16:37] VITALS: BP 128/82; PULSE 64; TEMP 98.7; O2SAT 96
--- NOTE | 2018-05-05 18:19 | CP.PCM.DIS ---
Provider - Provider Date of Admission: 04/28/18 22:13 Attending physician: Kevin Laurent MD Time Spent in preparation of Discharge (in minutes): 180 Diagnosis - Discharge Diagnosis (1) Neck pain on right side Status: Acute (2) Dysphagia Status: Acute (3) Dyspnea Status: Acute Hospital Course - Lab Results Lab Results: Micro Results 04/30/18 15:15 Blood-Venous Blood Culture - Final NO GROWTH AFTER 5 DAYS 04/30/18 15:15 Blood-Venous Gram Stain - Final TEST NOT PERFORMED 04/30/18 15:15 Blood-Venous Blood Culture - Final NO GROWTH AFTER 5 DAYS 04/30/18 15:15 Blood-Venous Gram Stain - Final TEST NOT PERFORMED 04/30/18 15:15 Urine Urine Culture - Final No Growth (<1,000 CFU/ML) 04/30/18 15:15 Throat Group A Strep Throat Culture - Final NO BETA STREP GROUP A ISOLATED. Most Recent Lab Values WBC 6.0 K/uL (4.8-10.8) 05/04/18 07:20 RBC 4.39 Mil/uL (4.40-5.90) L 05/04/18 07:20 Hgb 14.6 g/dL (12.0-18.0) 05/04/18 07:20 Hct 42.1 % (35.0-51.0) 05/04/18 07:20 MCV 96.0 fL (80.0-94.0) H 05/04/18 07:20 MCH 33.4 pg (27.0-31.0) H 05/04/18 07:20 MCHC 34.8 g/dL (33.0-37.0) 05/04/18 07:20 RDW 12.9 % (11.5-14.5) 05/04/18 07:20 Plt Count 202 K/uL (130-400) 05/04/18 07:20 MPV 9.9 fL (7.2-11.7) 05/04/18 07:20 Neut % (Auto) 58.4 % (50.0-75.0) 05/04/18 07:20 Lymph % (Auto) 25.3 % (20.0-40.0) 05/04/18 07:20 Bledsoe % (Auto) 7.9 % (0.0-10.0) 05/04/18 07:20 Eos % (Auto) 7.8 % (0.0-4.0) H 05/04/18 07:20 Baso % (Auto) 0.6 % (0.0-2.0) 05/04/18 07:20 Neut # (Auto) 3.5 K/uL (1.8-7.0) 05/04/18 07:20 Lymph # (Auto) 1.5 K/uL (1.0-4.3) 05/04/18 07:20 Bledsoe # (Auto) 0.5 K/uL (0.0-0.8) 05/04/18 07:20 Eos # (Auto) 0.5 K/uL (0.0-0.7) 05/04/18 07:20 Baso # (Auto) 0.0 K/uL (0.0-0.2) 05/04/18 07:20 ESR 19 mm/hr (0-15) H 04/29/18 13:19 PT 15.6 SECONDS (9.7-12.2) H 04/28/18 19:52 INR 1.4 04/28/18 19:52 APTT 32 SECONDS (21-34) 04/28/18 19:52 Sodium 143 mmol/L (132-148) 05/04/18 07:20 Potassium 3.7 mmol/L (3.6-5.2) 05/04/18 07:20 Chloride 104 mmol/L (98-107) 05/04/18 07:20 Carbon Dioxide 26 mmol/L (22-30) 05/04/18 07:20 Anion Gap 17 (10-20) 05/04/18 07:20 BUN 8 mg/dL (9-20) L 05/04/18 07:20 Creatinine 0.7 mg/dL (0.8-1.5) L 05/04/18 07:20 Est GFR ( Amer) > 60 05/04/18 07:20 Est GFR (Non-Af Amer) > 60 05/04/18 07:20 POC Glucose (mg/dL) 102 mg/dL (65-110) 05/03/18 06:13 Random Glucose 97 mg/dL (75-110) 05/04/18 07:20 Calcium 9.2 mg/dl (8.6-10.4) 05/04/18 07:20 Phosphorus 4.6 mg/dL (2.5-4.5) H 05/04/18 07:20 Magnesium 1.9 mg/dL (1.6-2.3) 05/04/18 07:20 Total Bilirubin 0.6 mg/dL (0.2-1.3) 05/04/18 07:20 AST 52 U/L (17-59) 05/04/18 07:20 ALT 84 U/L (21-72) H 05/04/18 07:20 Alkaline Phosphatase 106 U/L (38-126) 05/04/18 07:20 Lactate Dehydrogenase 311 U/L (313-618) L 04/30/18 06:45 Total Creatine Kinase 25 U/L (55-170) L 05/02/18 07:44 CK-MB (Mass) 0.27 ng/mL (0.0-3.38) 04/29/18 05:38 Troponin I < 0.0120 ng/mL (0.00-0.120) 04/29/18 05:38 C-Reactive Protein 12.20 mg/L (0.0-9.9) H 04/29/18 13:19 Total Protein 7.4 g/dL (6.3-8.3) 05/04/18 07:20 Albumin 4.1 g/dL (3.5-5.0) 05/04/18 07:20 Globulin 3.3 gm/dL (2.2-3.9) 05/04/18 07:20 Albumin/Globulin Ratio 1.2 (1.0-2.1) 05/04/18 07:20 Procalcitonin 0.05 NG/ML (0.19-0.49) L 05/02/18 07:44 Urine Color Yellow (YELLOW) 04/30/18 15:15 Urine Clarity Hazy (Clear) 04/30/18 15:15 Urine pH 5.0 (5.0-8.0) 04/30/18 15:15 Ur Specific [place] 1.023 (1.003-1.030) 04/30/18 15:15 Urine Protein Negative mg/dL (NEGATIVE) 04/30/18 15:15 Urine Glucose (UA) Normal mg/dL (Normal) 04/30/18 15:15 Urine Ketones Negative mg/dL (NEGATIVE) 04/30/18 15:15 Urine Blood Negative (NEGATIVE) 04/30/18 15:15 Urine Nitrate Negative (NEGATIVE) 04/30/18 15:15 Urine Bilirubin Negative (NEGATIVE) 04/30/18 15:15 Urine Urobilinogen Normal mg/dL (0.2-1.0) 04/30/18 15:15 Ur Leukocyte Esterase Neg [place]/uL (Negative) 04/30/18 15:15 Urine RBC (Auto) < 1 /hpf (0-3) 04/30/18 15:15 Vancomycin Trough 5.4 ug/mL (5.0-10.0) 05/05/18 04:45 VASU Nuclear Membr Pat Negative (Negative) 04/29/18 13:19 Grp A Beta Strep Ag Negative (NEGATIVE) 04/30/18 15:15 - Hospital Course Hospital Course: On admission: Patient is a 42 year old male w/ no PMHx who presented to the ED w/ complaints of right sided neck, shoulder, and post auricular pain, left sided chest pressure, and dysphagia since 11am. Pt reports the neck pain is worse with movement and painful to touch, right arm weakness and tingling. Pt reports dysphagia to liquids. Pt reports left chest pressure, worse when laying flat. Pt reports all symptoms are of new onset. Upon questioning, pt admits to right sided throbbing cervical/post auricular new onset headache. Pt denies chest pain, SOB, abdominal pain, nausea, vomiting or diarrhea. Of note; DATAWAREHOUSE DEVELOPER called to CT earlier in evening as pt had new onset facial allergic reaction, non anaphylactic to presumed iv contrast or toradol given by ED. Full resolution w/ Benadryl 50mg and solu-cortef 100mg On Hospitalization: Patient was admitted for neck and chest pain to rule out inflammatory vs neoplastic etiology. Neck and Chest CT demonstrated extensive infiltration changes seen within the mediastinal fat extending superiorly into supraclavicular subcutaneous tissues and subcutaneous tissues of the lower neck b/l; infiltration changes within anterior subcutaneous tissues of mid upper chest and b/l parasagittal upper chest more so on the R side; findings uncertain etiology, cannot exclude cellulitis, mediastinitis, atypical neoplastic process. CT head was negative for acute changes. ESR and CRP were elvated. VASU was negative, U/A was negative. Blood culture and urine culture showed no growth. negative rapid strep test. Troponin levels were negative x1, echo shows LV systolic function normal, EF 50-55%, no aortic regurg present. EKG was unchanged from previous EKG in 04/05/18. Patient was placed on NPO for dysphagia. the following specialist were consulted for this case: Heme Onc Dr arthur which suspected infectious etiology, empiric antibiotic. CT Dr bass consulted, recs to conintue current care, Dr PIO montejo which continue patient on clindamycin 600mg IV Q8hrs. Critical care Dr Martinez, consulted - Pt medically stable to remain on floor, please re consult hvac operations technician if pt condition worsens. Anesthesiology consulted - Dr Bustos - Patient does not appear to have asymmetrical swelling of the neck, no tenderness to palpation of neck and shoulder. Oral/oralpharynx cavity normal appearance. At this time unclear of the etiology however patient is responding to antibiotic. Esophagogram shows no extraluminal extravagation of contrast material. no perforation. Patient was given Vanco 1gm IVPB Q12, and Clindamycin 600mg IVPB Q8. Patient was advanced diet. Patient received albuterol (ventolin) 1 puff Inh Q6 for wheezing on auscultation. Patient reported feeling better, and was given CPAP at his home rate of 4.5. DVT ppx was done Heparin 5000U q 8h and pain management and Morphine 1mg IVP Q6hrs PRN for moderate pain 4-6, Oxycodone 5mg PO Q6 PRN for severe pain 7-10. On discharge: the following instruction were given to patient: Patient is to follow up with his primary medical doctor. Patient will follow with Dr Purcell (ENT) and Dr Cottrell, (heme/onc) for further recs. Patient will need to get a repeat CT scan in 2-3 months. Patient is to take the following medications: -clindamycin 300mg per mouth three times a day for 7 days - acidophilus 1 capsule twice a day for 10 days. Patient is to resume taking home meds and Cipap machine. Patient is to return to ER if symptoms worsen or recur This is a brief summary of Patient hospitalization course, for more information, please see patient's EMR. - Date & Time of H&P Date of H&P: 04/28/18 Time of H&P: 22:45 Discharge Exam - Head Exam Head Exam: ATRAUMATIC, NORMAL INSPECTION, NORMOCEPHALIC - Eye Exam Eye Exam: EOMI, Normal appearance - ENT Exam ENT Exam: Mucous Membranes Dry, Normal Exam - Neck Exam Neck exam: Full Rom, Normal Inspection - Respiratory Exam Respiratory Exam: Clear to PA & Lateral, NORMAL BREATHING PATTERN, UNREMARKABLE - Cardiovascular Exam Cardiovascular Exam: REGULAR RHYTHM, +S1, +S2 - GI/Abdominal Exam GI & Abdominal Exam: Normal Bowel Sounds, Unremarkable. absent: Distended, Tenderness - Extremities Exam Extremities exam: full ROM, normal inspection - Back Exam Back exam: FULL ROM, NORMAL INSPECTION - Neurological Exam Neurological exam: Alert, Normal Gait, Oriented x3 - Psychiatric Exam Psychiatric exam: Normal Affect, Normal Mood - Skin Skin Exam: Dry, Intact, Normal Color, Warm Discharge Plan - Discharge Medications Prescriptions: Clindamycin [Cleocin] 300 mg PO TID 7 Days #21 cap Lactobacillus Acidophilus [Acidophilus] 1 each PO BID 10 Days #20 capsule - Follow Up Plan Condition: FAIR Disposition: HOME/ ROUTINE Instructions: Dysphagia (DC), Generalized Neck Pain (DC) Additional Instructions: Paciente es el seguimiento con banks mdico de cabecera. El paciente seguir con el Dr. Purcell (ENT) y el Dr. Cottrell (heme/ONC) para ms RECs. el paciente tendr que obtener mckenna tomografa computarizada repetida en 2-3 meses. El paciente debe zachary los siguientes medicamentos:-clindamicina 300mg por boca noreen veces al da erica 7 mendoza -acidophilus 1 cpsula dos veces al da erica 10 mendoza. Paciente es reanudar la lilliam de medicamentos para el hogar y CiPAP paciente de la mquina es volver a er si los sntomas de retorno y/o empeora Patient is to follow up with his primary medical doctor. Patient will follow with Dr Purcell (ENT) and Dr Cottrell (heme/onc) for further recs. Patient will need to get a repeat CT scan in 2-3 months. Patient is to take the following medications: -clindamycin 300mg per mouth three times a day for 7 days - acidophilus 1 capsule twice a day for 10 days. Patient is to resume taking home meds and Cipap machine Patient is to return to ER if symptoms worsen or recur Referrals: Jose J Garcia MD [Staff Provider] - Brandon Purcell MD [Staff Provider] -
--- NOTE | 2018-05-05 18:46 | CARD ---
APPROVED REPORT Date of service: 04/29/2018 EKG Measurement Heart [id number] <Conclusion> Sinus bradycardia Inferior infarct, age undetermined Abnormal ECG
== END 2018-05-05 16:53 | disposition home or self-care (01) | DRG 602 ==
LOC: C.ER 18:49 → C.9E 22:13 → C.3T 22:32 → C.5S 04-30 22:38
PROVIDERS: ADMIT Internal Medicine; ATTEND Internal Medicine
DX: L03.221 Cellulitis of neck (principal); J98.51 Mediastinitis; Z68.41 Body mass index [BMI] 40.0-44.9, adult; M54.2 Cervicalgia; G47.33 Obstructive sleep apnea (adult) (pediatric); R13.10 Dysphagia, unspecified; E66.9 Obesity, unspecified